=== PATIENT | female | born 2000 | race Caucasian/White ===

== ENCOUNTER 2021-10-11 13:22 | Emergency (ER) | payer OTHER, SELFPAY ==
--- NOTE | ~2021-10-11 | XR_ITS ---
EXAMINATION: XR nasal bones min 3V DATE: 10/11/2021 14:10 INDICATION: Nose injury. TECHNIQUE: 3 views of the nasal bones were obtained. COMPARISON: None. FINDINGS: There are nondisplaced fractures of the tips of the nasal bones. IMPRESSION: 1. Nondisplaced fractures of the tips of the nasal bones. Reviewed, dictated and finalized at location B.
[2021-10-11 13:40] VITALS: BP 123/65; PULSE 70; RESP 16; TEMP 37.1; O2SAT 98
--- NOTE | 2021-10-11 14:14 | ED.HEATRA ---
HPI - Head Injury General Chief complaint: Trauma Stated complaint: Nose Injury Time Seen by Provider: 10/11/21 14:14 Source: patient Mode of arrival: ambulatory Limitations: no limitations History of Present Illness HPI Narrative: Zoila is a 21-year-old female patient presenting to the clinic today with complaints of nasal pain. She reports that she was hit by a farm gate at approximately 10:00 this morning when some cattle was running through and bumped into the gate and it came back and hit her in the face. She did state that she had a little bit of an nosebleed however this has resolved. Pain to the bridge of her nose and headache. She denies any loss of consciousness. Related Data Home Medications Medication Instructions Recorded Confirmed buspirone 10 mg PO TID 10/11/21 10/11/21 fexofenadine [Etelvina] 180 mg PO DAILY 10/11/21 10/11/21 fluoxetine [Prozac] 40 mg PO DAILY 10/11/21 10/11/21 Allergies Allergy/AdvReac Type Severity Reaction Status Date / Time No Known Allergies Allergy Verified 10/11/21 13:50 Review of Systems Review of Systems: Pertinent positives per HPI. Patient denies any fever, chills, rash, visual changes, dizziness, cough, runny nose, sore throat, shortness of breath, chest pain, palpitations, nausea, vomiting, diarrhea, constipation, abdominal pain, or any urinary issues. PMFSH Comments At the time of my signature, I reviewed and agree with the nursing past medical, surgical, social, and family history. There is no relevant family history pertinent to the patient complaint. Exam Narrative: General: Well-developed, well nourished, in no apparent distress Head: Normocephalic, atraumatic Eyes: Pupils equally round and reactive to light bilaterally, EOM intact, sclera and conjunctive clear, no discharge, lids normal Ears: TMs intact and clear, ear canals clear, no drainage, grossly hearing normal. Nose: Nares patent, no discharge, moderate inflammation over the septum, no sinus tenderness. Tenderness to palpation over the bridge of the nose. No sign of bleeding Mouth: Oropharynx without lesions or masses, good dentition, MMM. Neck: Supple, trachea midline, no enlargement of anterior or posterior cervical nodes, no thyroid masses or goiter palpable. Cardio: Regular rate and rhythm, s1 and s2 normal, no murmur appreciated. Resp: Clear to auscultation bilaterally anteriorly and posteriorly, no rhonchi, rales, wheezing or rubs Course Course Emergency Course: Portions of this record may have been created with voice recognition software. Level of Care: Express Care Visit Vital Signs Vital signs: Vital Signs Temperature 37.1 C 10/11/21 13:40 Pulse Rate 70 10/11/21 13:40 Respiratory Rate 16 10/11/21 13:40 Blood Pressure 123/65 10/11/21 13:40 Pulse Oximetry 98 10/11/21 13:40 Temperature 37.1 C 10/11/21 13:40 Pulse Rate 70 10/11/21 13:40 Respiratory Rate 16 10/11/21 13:40 Blood Pressure 123/65 10/11/21 13:40 Pulse Oximetry 98 10/11/21 13:40 Vital signs reviewed MDM - Head Injury MDM Narrative Medical decision making narrative: At the time of assessment patient was resting comfortably on the exam table. She reports nasal bridge pain after being hit by a farm gate. Denies any loss of consciousness. X-ray shows a acute fracture of the nasal bone without malalignment. Supportive measures discussed with patient she voiced understanding. Close head injury instructions also given to patient. Differential Diagnosis Differential diagnosis: Likely concussion without loss of consciousness, closed head injury and other (Nasal bone fracture, nasal contusion) Imaging Data Attestation: I personally reviewed and interpreted this imaging study as follows: My impression: Nondisplaced fracture of the distal nasal bone Radiologist's impression: [facility] [place], [place] [phone] XRay ReportSigned Patient: Glynn LeiB: [birth year]16
== END 2021-10-11 14:32 | disposition home or self-care (01) ==
PROVIDERS: Emergency Provider Nurse Practitioner Family
DX: S09.90XA Unspecified injury of head, initial encounter (principal); S02.2XXA Fracture of nasal bones, initial encounter for closed fracture; W22.8XXA Striking against or struck by other objects, initial encounter; F32.A Depression, unspecified
CPT/HCPCS: 70160; 99213; G0463

== ENCOUNTER 2021-11-15 08:30 | Emergency (ER) | payer OTHER, SELFPAY ==
--- NOTE | ~2021-11-15 | XR_ITS ---
XR hand LT min 3V, XR wrist LT min 3V 11/15/2021 09:09 (accession [id number]), 11/15/2021 09:10 (accession [id number]) Indication: Trauma to the left hand and wrist. Pain. Procedure: 3 views left hand and 4 views left wrist Comparison: No prior studies for comparison. Findings: There is anatomic alignment. No fracture, subluxation or dislocation. No significant soft t issue abnormality. No foreign bodies. Impression: 1: No acute bone or joint abnormality. Reviewed, dictated and finalized at location A. Impression: 1: No acute bone or joint abnormality. Impression: 1: No acute bone or joint abnormality.
--- NOTE | 2021-11-15 08:35 | ED.UPPEXIN ---
HPI - Extremity Injury (Upper) General Chief Complaint: Extremity Injury, Upper Stated Complaint: Left Hand Injury Time Seen by Provider: 11/15/21 08:35 Source: patient and RN notes reviewed History of Present Illness HPI narrative: Patient is a 21-year-old female who presents the urgent care with complaints of left wrist and thumb injury. Patient was seen at [facility] 7 days ago after she hit it on a concrete ledge of a pool. Patient states that she is unsure if she has a wrist fracture or a thumb injury and her paperwork was unclear . Patient states she did not obtain any x-ray reports after she left [facility]. States that she was advised to follow-up with a hand specialist in which she did call their office. Patient states that they told her to leave on the temporary splint and to follow-up on November 29. Patient states that her current OCL is covered in shit and needs to be replaced. Patient states she is been alternating Tylenol and ibuprofen for the pain. Patient is left-hand dominant. No other acute complaints or new injuries reported. No acute distress noted. Patient aware of the plan of care. Some parts of this dictation were generated by voice recognition software and may contain typographical and/or grammatical inaccuracies. Related Data Home Medications Medication Instructions Recorded Confirmed buspirone 10 mg PO TID 10/11/21 10/11/21 fexofenadine [Etelvina] 180 mg PO DAILY 10/11/21 10/11/21 fluoxetine [Prozac] 40 mg PO DAILY 10/11/21 10/11/21 Allergies Allergy/AdvReac Type Severity Reaction Status Date / Time No Known Allergies Allergy Verified 11/15/21 08:54 Review of Systems Review of Systems: CONSTITUTIONAL: Denies fever, chills, or sweats. EYES: Denies visual changes, redness, or discharge. ENT: Denies rhinorrhea, congestion, sore throat, or otalgia. CARDIOVASCULAR: Denies chest pain, palpitations, or edema. RESPIRATORY: Denies cough or dyspnea. GASTROINTESTINAL: Denies abdominal pain, nausea, vomiting, or diarrhea. GENITOURINARY: Denies dysuria or hematuria. SKIN: Denies rash or itching. MUSCULOSKELETAL: Reports of left thumb/wrist pain due to injury NEUROLOGIC: Denies headache, numbness, or weakness. All other systems reviewed are negative, except as documented in HPI. PMFSH Comments At the time of my signature, I reviewed and agree with the nursing past medical, surgical, social, and family history. There is no relevant family history pertinent to the patient complaint. Exam Narrative: GENERAL: This is a well-nourished, well-developed patient, in no apparent distress. HEAD: normocephalic, atraumatic. EYES: PERRL. Sclera clear/white. Vision is grossly intact. EARS: External ears normal NOSE: External nose normal with no obvious nasal discharge, nares without redness, no rhinorrhea. THROAT: Mucous membranes moist NECK: Neck supple CARDIOVASCULAR: Regular rate and rhythm without murmurs, gallops, or rubs. RESPIRATORY: Clear to auscultation. Breath sounds equal bilaterally. No wheezes, rales, or rhonchi. SKIN: warm, intact with no suspicious lesions or rash, good texture and turgor. NEURO: awake, alert, and oriented to person, place and time. There were no obvious focal neurologic abnormalities. EXTREMITIES: OCL thumb spica noted to the left upper extremity without any obvious edema, erythema or ecchymosis. Capillary refill less than 2 seconds to left upper extremity. Course Course Level of Care: Express Care Visit Vital Signs Vital signs: Vital Signs Temperature 98.3 F 11/15/21 08:38 Pulse Rate 62 11/15/21 08:38 Respiratory Rate 16 11/15/21 08:38 Blood Pressure 124/73 11/15/21 08:38 Pulse Oximetry 100 11/15/21 08:38 Temperature 98.3 F 11/15/21 08:38 Pulse Rate 62 11/15/21 08:38 Respiratory Rate 16 11/15/21 08:38 Blood Pressure 124/73 11/15/21 08:38 Pulse Oximetry 100 11/15/21 08:38 Reviewed MDM - Extremity Injury (Upper) MDM Narrative
[2021-11-15 08:38] VITALS: BP 124/73; PULSE 62; RESP 16; TEMP 36.8; O2SAT 100
== END 2021-11-15 09:40 | disposition home or self-care (01) ==
PROVIDERS: Emergency Provider Nurse Practitioner Family
DX: S63.602A Unspecified sprain of left thumb, initial encounter (principal); W22.8XXA Striking against or struck by other objects, initial encounter
CPT/HCPCS: 73110; 73130; 99213; G0463

== ENCOUNTER 2022-05-11 14:58 | Emergency (ER) | payer OTHER, SELFPAY ==
--- NOTE | ~2022-05-11 | XR_ITS ---
XR nasal bones min 3V DATE: 05/11/2022 15:31 INDICATION: Fell into gait with nose. Bilateral nasal bridge pain TECHNIQUE: dileep Licea and left and right lateral views of the nasal bones COMPARISON: None FINDINGS: There is a transverse nondisplaced fracture near the tip of the nasal bones. The anterior m axillary spine is intact. The paranasal sinuses and mastoid air cells are normally developed and aera herman. IMPRESSION: Nondisplaced fracture near the tip of the nasal bones Reviewed, dictated and finalized at location A. MENT SHAPER
[2022-05-11 15:07] VITALS: BP 147/70; PULSE 73; RESP 16; TEMP 37.3; O2SAT 100
--- NOTE | 2022-05-11 15:30 | ED.GENADULT ---
HPI - General Adult General Chief complaint: Unspecified Stated complaint: Nose Injury Time Seen by Provider: 05/11/22 15:30 Source: patient, RN notes reviewed and old records reviewed Mode of arrival: ambulatory Limitations: no limitations History of Present Illness HPI narrative: 21-year-old female who presents to [facility] with complaints of injury to the bridge of her nose after striking it on the gait. 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 Patient was wearing glasses at the time and pushed them into her nose also. Patient had previous nasal fracture in September 2021 complaint: nasal injury Onset (ago): hour(s) (at 1000 today) Location: face Severity scale (1-10): 2 Quality: aching Treatments prior to arrival: none Related Data Home Medications Medication Instructions Recorded Confirmed No Home Medications 05/11/22 05/11/22 Allergies Allergy/AdvReac Type Severity Reaction Status Date / Time No Known Allergies Allergy Verified 05/11/22 15:21 Review of Systems Review of Systems: CONSTITUTIONAL: Denies fever, chills, or sweats. EYES: Denies visual changes, redness, or discharge. ENT: Denies rhinorrhea, congestion, sore throat, or otalgia.swelling and pain to bridge of nose from injury CARDIOVASCULAR: Denies chest pain, palpitations, or edema. RESPIRATORY: Denies cough or dyspnea. GASTROINTESTINAL: Denies abdominal pain, nausea, vomiting, or diarrhea. GENITOURINARY: Denies dysuria or hematuria. SKIN: Denies rash or itching. MUSCULOSKELETAL: Denies back pain, joint pain, or myalgia. NEUROLOGIC: Denies headache, numbness, or weakness. PSYCHIATRIC: positive for history of anxiety or depression. All systems reviewed & are unremarkable except as noted in HPI and below PMFSH Past Medical History Medical History (Updated 05/12/22 @ 00:00 by Vicki Oreilly) Anxiety and depression Surgical History Surgical History (Updated 05/15/22 @ 07:50 by Zee Pan NP) History of thumb surgery right related to fracture Social History Social History (Updated 05/15/22 @ 07:46 by Zee Pan NP) Tobacco type: e-cigarettes/vaping Alcohol intake: current Alcohol use details: rare social Substance use type: does not use Living arrangements: with family Gender identity (if verbalized by the patient): Female Comments At time of signature, agree with nursing past medical, surgical, social and family history. There is no relevant family history pertinent to the presenting complaint Exam Narrative: GENERAL: Well-appearing, well-nourished, and in no acute distress. HEAD: Normocephalic, atraumatic. EYES: PERRLA and EOMI. ENT: Nares clear, no rhinorrhea or epistaxis. Mucous membranes moist,no nasal bleeding noted, swelling and discomfort to bridge of the nose. NECK: Supple. no lymphadenopathy CHEST: Clear to auscultation. No respiratory distress. SAO2 100% on room air HEART: Regular rate and rhythm. No murmur heard. Normal peripheral pulses. ABDOMEN: Soft, nontender, nondistended, normal active bowel sounds. EXTREMITIES: Normal range of motion. No edema. SKIN: Warm, dry, no rash. NEURO: No focal deficits. Alert and oriented x3. Course Course Level of Care: Express Care Visit Vital Signs Vital signs: Vital Signs Temperature 37.3 C 05/11/22 15:07 Pulse Rate 73 05/11/22 15:07 Respiratory Rate 16 05/11/22 15:07 Blood Pressure 147/70 H 05/11/22 15:07 Pulse Oximetry 100 05/11/22 15:07 Oxygen Delivery Room Air 05/11/22 15:07 Temperature 37.3 C 05/11/22 15:07 Pulse Rate 73 05/11/22 15:07 Respiratory Rate 16 05/11/22 15:07 Blood Pressure 147/70 H 05/11/22 15:07 Pulse Oximetry 100 05/11/22 15:07 Oxygen Delivery Room Air 05/11/22 15:07 Medical Decision Making Differential Diagnosis Differential Diagnosis: contusion to nose, nasal fracture, pain and swelling to nose
== END 2022-05-11 16:20 | disposition home or self-care (01) ==
PROVIDERS: Emergency Provider Registered Nurse
DX: S02.2XXA Fracture of nasal bones, initial encounter for closed fracture (principal); W22.8XXA Striking against or struck by other objects, initial encounter; Y99.0 Civilian activity done for income or pay; F17.290 Nicotine dependence, other tobacco product, uncomplicated
CPT/HCPCS: 70160; 99213; G0463

== ENCOUNTER 2022-08-22 11:03 | Emergency (ER) | payer OTHER, SELFPAY ==
[2022-08-22 11:08] VITALS: BP 136/81; PULSE 64; RESP 20; TEMP 36.2; O2SAT 98
--- NOTE | 2022-08-22 11:09 | ED.ABDPAIN ---
HPI - Abdominal Pain General Chief Complaint: Abdominal Pain Stated Complaint: abd pain Time Seen by Provider: 08/22/22 11:09 Source: patient and RN notes reviewed History of Present Illness HPI narrative: Patient is a 22-year-old female who presents to the Urgent Care with complaints of abdominal pain and vomiting. Patient states it started a couple hours ago after she ate a breakfast hot pocket. Patient states she vomited 3 times. Denies any urinary symptoms, diarrhea or fever. Patient took Tylenol for her abdominal discomfort. No other acute complaints. No acute distress noted. Patient aware of the plan of care. Some parts of this dictation were generated by voice recognition software and may contain typographical and/or grammatical inaccuracies. Related Data Home Medications Medication Instructions Recorded Confirmed No Home Medications 05/11/22 05/11/22 Allergies Allergy/AdvReac Type Severity Reaction Status Date / Time No Known Allergies Allergy Verified 08/22/22 11:12 Review of Systems Review of Systems: CONSTITUTIONAL: Denies fever, chills, or sweats. EYES: Denies visual changes, redness, or discharge. ENT: Denies rhinorrhea, congestion, sore throat, or otalgia. CARDIOVASCULAR: Denies chest pain, palpitations, or edema. RESPIRATORY: Denies cough or dyspnea. GASTROINTESTINAL: Reports of abdominal pain and vomiting GENITOURINARY: Denies dysuria or hematuria. SKIN: Denies rash or itching. MUSCULOSKELETAL: Denies back pain, joint pain, or myalgia. NEUROLOGIC: Denies headache, numbness, or weakness. All other systems reviewed are negative, except as documented in HPI. [facility] Past Medical History Medical History (Updated 08/22/22 @ 11:47 by CONRAD Padilla) Anxiety and depression Surgical History Surgical History (Updated 05/15/22 @ 07:50 by Zee Pan NP) History of thumb surgery right related to fracture Social History Social History (Updated 05/15/22 @ 07:46 by Zee Pan NP) Tobacco type: e-cigarettes/vaping Alcohol intake: current Alcohol use details: rare social Substance use type: does not use Living arrangements: with family Gender identity (if verbalized by the patient): Female Comments At the time of my signature, I reviewed and agree with the nursing past medical, surgical, social, and family history. There is no relevant family history pertinent to the patient complaint. Exam Narrative: GENERAL: This is a well-nourished, well-developed patient, in no apparent distress. HEAD: normocephalic, atraumatic. EYES: PERRL. Sclera clear/white. Vision is grossly intact. EARS: External ears normal NOSE: External nose normal with no obvious nasal discharge, nares without redness, no rhinorrhea. THROAT: Mucous membranes moist NECK: Neck supple CARDIOVASCULAR: Regular rate and rhythm RESPIRATORY: Clear to auscultation. Breath sounds equal bilaterally. No wheezes, rales, or rhonchi. GASTROINTESTINAL: Abdomen soft, left-sided rebound tenderness, nondistended. Bowel sounds are active. SKIN: warm, intact with no suspicious lesions or rash, good texture and turgor. NEURO: awake, alert, and oriented to person, place and time. There were no obvious focal neurologic abnormalities. EXTREMITIES: No clubbing, cyanosis, or edema. BACK: Left CVA tenderness Course Course Level of Care: Express Care Visit Vital Signs Vital signs: Vital Signs Temperature 97.1 F L 08/22/22 11:08 Pulse Rate 64 08/22/22 11:08 Respiratory Rate 20 08/22/22 11:08 Blood Pressure 136/81 08/22/22 11:08 Pulse Oximetry 98 08/22/22 11:08 Oxygen Delivery Room Air 08/22/22 11:08 Temperature 97.1 F L 08/22/22 11:08 Pulse Rate 64 08/22/22 11:08 Respiratory Rate 20 08/22/22 11:08 Blood Pressure 136/81 08/22/22 11:08 Pulse Oximetry 98 08/22/22 11:08 Oxygen Delivery Room Air 08/22/22 11:08 Reviewed Transfer Transfered to: [facility]
== END 2022-08-22 11:48 | disposition short-term general hospital (02) ==
PROVIDERS: Emergency Provider Nurse Practitioner Family
DX: R31.9 Hematuria, unspecified (principal); R10.9 Unspecified abdominal pain; F41.9 Anxiety disorder, unspecified; F32.A Depression, unspecified; F17.290 Nicotine dependence, other tobacco product, uncomplicated
CPT/HCPCS: 81003; 99212; G0463

== ENCOUNTER 2022-12-07 17:33 | Emergency (ER) | payer OTHER, SELFPAY ==
--- NOTE | ~2022-12-07 | XR_ITS ---
EXAMINATION: XR foot LT min 3V DATE: 12/07/22 INDICATION: Left foot injury and pain. TECHNIQUE: 4 views of left foot were obtained. COMPARISON: None. FINDINGS: Bone alignment is normal. No fracture. There is mild osteoarthritis of first metatarsophala ngeal joint. There is an enthesophyte at posterior aspect of calcaneal tuberosity. IMPRESSION: 1. No fracture. Reviewed, dictated and finalized at location A. IMPRESSION: 1. No fracture.
--- NOTE | 2022-12-07 19:35 | PC.NURSE ---
12/07/221934 SEE DOWNTIME DOCUMENTATION. STUART KEY RN
== END 2022-12-07 18:45 | disposition home or self-care (01) ==
PROVIDERS: Emergency Provider Nurse Practitioner Family; PCP Nurse Practitioner Family
DX: S90.32XA Contusion of left foot, initial encounter (principal); W55.22XA Struck by cow, initial encounter
CPT/HCPCS: 73630; 99213; G0463

== ENCOUNTER 2023-06-08 08:11 | Emergency (ER) | payer OTHER, SELFPAY ==
--- NOTE | 2023-06-08 08:13 | ED.URI ---
HPI - URI/Sore Throat General Chief Complaint: Upper Respiratory Infection Stated Complaint: Cough/Chest Pain Time Seen by Provider: 06/08/23 08:32 Source: patient, RN notes reviewed and old records reviewed Mode of arrival: ambulatory Limitations: no limitations History of Present Illness HPI Narrative: 22-year-old female presents to the [facility] with complaints of a cough for 1 week. Has tried DayQuil and NyQuil. Patient is a former smoker. Denies fevers Onset (ago): week(s) (1) Related Data Allergies Allergy/AdvReac Type Severity Reaction Status Date / Time No Known Allergies Allergy Verified 06/08/23 08:23 Review of Systems Review of Systems: All systems reviewed & are unremarkable except as noted in HPI and below Constitutional: Constitutional: Reports no additional constitutional complaints Eyes: Eyes: Reports no additional eye complaints ENT: Reports system reviewed and no additional complaints, except as documented Cardiovascular: Cardiovascular: Reports no additional cardiovascular complaints, Denies chest pain and Denies dyspnea Respiratory: Respiratory: Reports as per HPI, Denies chest congestion, Reports cough, Denies dyspnea and Denies wheezing Gastrointestinal: Gastrointestinal: Reports no additional gastrointestinal complaints, Denies abdominal pain, Denies nausea and Denies vomiting Musculoskeletal: Musculoskeletal: Reports no additional musculoskeletal complaints Integumentary/Breasts: Skin/Breast: Reports system reviewed and no additional complaints, except as docu Neurologic: Reports system reviewed and no additional complaints, except as documented Psychiatric: Psychiatric: Reports no additional psychiatric complaints Allergic/Immunologic: Allergic/Immunologic: Reports no additional allergic/immunologic complaints PMF Past Medical History Medical History Anxiety and depression Surgical History Surgical History History of thumb surgery right related to fracture Social History Social History Tobacco type: e-cigarettes/vaping Alcohol intake: current Alcohol use details: rare social Substance use type: does not use Living arrangements: with family Gender identity (if verbalized by the patient): Female Comments At the time of my signature, I reviewed and agree with the nursing past medical, surgical, social, and family history. There is no relevant family history pertinent to the patient complaint. Exam Const: General: cooperative, healthy appearing, comfortable, no acute distress, well developed, alert and well nourished Nutritional Appearance: well nourished Orientation/consciousness: patient oriented x3 Limitations: no limitations HENMT: Head: normal to inspection Ears: hearing grossly normal bilaterally, external ears normal, TM's normal bilaterally, EAC's normal, mastoids normal and no periauricular adenopathy Face/Nose/Sinus: Normal external nose present, Normal nares present, Normal nasal mucous membranes and turbinates present, normal facial exam, sinuses nontender and face symmetric Face and sinus: normal facial exam and face symmetric Mouth: Yes Normal oral and palatal mucosa present, Yes lip normal and Yes moist mucous membranes Throat: posterior oropharynx normal, uvula midline and no uvular edema Eyes: General: appearance normal, both eyes and all related structures Alignment and Position: alignment normal Periorbital: periorbital findings normal Pupils: Equal, round and reactive pupils present EOM: EOMs intact bilaterally Neck: Neck: normal visual inspection, full ROM, no lymphadenopathy and no meningeal signs Chest: Chest palpation & inspection: normal inspection of the chest Resp: Effort & Inspection: normal respiratory effort and able to speak in complete sentences Auscultation: no c
[2023-06-08 08:15] VITALS: BP 132/73; PULSE 68; RESP 16; TEMP 37.4; O2SAT 98
== END 2023-06-08 08:46 | disposition home or self-care (01) ==
PROVIDERS: Emergency Provider Nurse Practitioner; PCP Nurse Practitioner Family
DX: J40 Bronchitis, not specified as acute or chronic (principal); F17.290 Nicotine dependence, other tobacco product, uncomplicated
CPT/HCPCS: 99213; G0463

== ENCOUNTER 2023-11-04 16:44 | Emergency (ER) | payer OTHER, SELFPAY ==
[2023-11-04 16:51] VITALS: BP 138/69; PULSE 74; RESP 16; TEMP 36.6; O2SAT 100
--- NOTE | 2023-11-04 16:53 | ED.GENADULT ---
HPI - General Adult General Chief complaint: Extremity Injury, Upper Stated complaint: lt hand/wrist pain Time Seen by Provider: 11/04/23 16:53 Source: patient, RN notes reviewed and old records reviewed Mode of arrival: ambulatory Limitations: no limitations History of Present Illness HPI narrative: 23-year-old patient to [facility] with complaint of left wrist and left hand discomfort for 5 days. 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 Patient reports that she is left-hand dominant and that she bread 30 cows 4 days ago. Patient states that it her job causes frequent compression left hand and wrist throughout the duration of her work days And states that she has been doing this job for 2 years. 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 Patient denies any known injury. Patient denies decreased range of motion of left hand, numbness, tingling, weakness. Patient states that she has informed her employ year her discomfort and states she cannot take off of work because they are under staffed. Patient calm and cooperative in exam room. Patient in no acute distress. Related Data Home Medications Medication Instructions Recorded Confirmed No Home Medications 11/04/23 11/04/23 Allergies Allergy/AdvReac Type Severity Reaction Status Date / Time No Known Allergies Allergy Verified 11/04/23 17:00 Review of Systems Review of Systems: All systems reviewed & are unremarkable except as noted in HPI and below Constitutional: Constitutional: Reports no additional constitutional complaints Eyes: Eyes: Reports no additional eye complaints ENT: Reports system reviewed and no additional complaints, except as documented Cardiovascular: Cardiovascular: Reports no additional cardiovascular complaints, Denies chest pain and Denies dyspnea Respiratory: Respiratory: Reports no additional respiratory complaints, Denies cough and Denies dyspnea Musculoskeletal: Musculoskeletal: Reports as per HPI, Reports arthralgias ( Left wrist; diffuse left hand), Denies numbness and Denies radiating pain into limb Neurologic: Reports system reviewed and no additional complaints, except as documented Psychiatric: Psychiatric: Reports no additional psychiatric complaints PMFSH Past Medical History Medical History Anxiety and depression Surgical History Surgical History History of thumb surgery right related to fracture Social History Social History Tobacco type: e-cigarettes/vaping Alcohol intake: current Alcohol use details: rare social Substance use type: does not use Living arrangements: with family Gender identity (if verbalized by the patient): Female Comments At the time of my signature, I reviewed and agree with the nursing past medical, surgical, social, and family history. There is no relevant family history pertinent to the patient complaint. Exam Const: General: cooperative, healthy appearing, comfortable, no acute distress, alert and well nourished Nutritional Appearance: well nourished Orientation/consciousness: patient oriented x3 Limitations: no limitations HENMT: Head: normal to inspection Ears: external ears normal Face/Nose/Sinus: Normal external nose present, Normal nares present, normal facial exam, No erythema and No edema Face and sinus: normal facial exam, no erythema and no edema Mouth: Yes Normal oral and palatal mucosa present Eyes: General: appearance normal, both eyes and all related structures Neck: Neck: normal visual inspection, full ROM and no meningeal signs Lymphatic: no lymphadenopathy noted and no lymphedema noted Chest: Chest palpation & inspection: normal inspection of the chest Resp: Effort
== END 2023-11-04 17:25 | disposition home or self-care (01) ==
PROVIDERS: Emergency Provider Nurse Practitioner Family; PCP Nurse Practitioner Family
DX: M25.532 Pain in left wrist (principal); M79.642 Pain in left hand; F17.290 Nicotine dependence, other tobacco product, uncomplicated
CPT/HCPCS: 99212; G0463

== ENCOUNTER 2024-05-07 09:09 | Emergency (ER) | payer OTHER, SELFPAY ==
[2024-05-07 09:16] VITALS: BP 120/55; PULSE 72; RESP 18; TEMP 37.1; O2SAT 100
--- NOTE | 2024-05-07 12:17 | ED.GENADULT ---
HPI - General Adult General Chief complaint: Nausea/Vomiting/Diarrhea Stated complaint: frequent bowel movements Time Seen by Provider: 05/07/24 09:18 Source: patient, RN notes reviewed and old records reviewed Mode of arrival: ambulatory Limitations: no limitations History of Present Illness HPI narrative: 23-year-old female to [facility] with complaint of diarrhea That began at approximately 3:30 a.m. this morning. Patient reports she has had 5-6 bowel movements since then. 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 Patient denies blood in stool, abdominal pain, nausea, vomiting, fever, allergies. Patient able to tolerate fluids by mouth. Patient resting comfortably in exam room in no acute distress. Related Data Allergies Allergy/AdvReac Type Severity Reaction Status Date / Time No Known Allergies Allergy Verified 05/07/24 09:30 Review of Systems Review of Systems: All systems reviewed & are unremarkable except as noted in HPI and below Constitutional: Constitutional: Reports no additional constitutional complaints Eyes: Eyes: Reports no additional eye complaints ENT: Reports system reviewed and no additional complaints, except as documented Cardiovascular: Cardiovascular: Reports no additional cardiovascular complaints, Denies chest pain and Denies dyspnea Respiratory: Respiratory: Reports no additional respiratory complaints, Denies cough and Denies dyspnea Gastrointestinal: Gastrointestinal: Reports as per HPI, Reports diarrhea, Denies nausea and Denies vomiting Musculoskeletal: Musculoskeletal: Reports no additional musculoskeletal complaints Neurologic: Reports system reviewed and no additional complaints, except as documented Psychiatric: Psychiatric: Reports no additional psychiatric complaints PMFSH Past Medical History Medical History Anxiety and depression Surgical History Surgical History History of thumb surgery right related to fracture Social History Social History Tobacco type: e-cigarettes/vaping Alcohol intake: current Alcohol use details: rare social Substance use type: does not use Living arrangements: with family Gender identity (if verbalized by the patient): Female Comments At the time of my signature, I reviewed and agree with the nursing past medical, surgical, social, and family history. There is no relevant family history pertinent to the patient complaint. Exam Const: General: cooperative, healthy appearing, comfortable, no acute distress, alert and well nourished Nutritional Appearance: well nourished Orientation/consciousness: patient oriented x3 Limitations: no limitations HENMT: Head: normal to inspection Ears: external ears normal Face/Nose/Sinus: Normal external nose present, Normal nares present, normal facial exam, No erythema and No edema Face and sinus: normal facial exam, no erythema and no edema Mouth: Yes Normal oral and palatal mucosa present Eyes: General: appearance normal, both eyes and all related structures Neck: Neck: normal visual inspection, full ROM and no meningeal signs Chest: Chest palpation & inspection: normal inspection of the chest Resp: Effort & Inspection: normal respiratory effort and able to speak in complete sentences Cardio: Jugular venous distension: no JVD Rate: regular rate GI: Inspection: normal to inspection GI Palp: No abdominal tenderness, Yes Soft to palpation, No Tenderness to palpation present (GI) and No Guarding due to palpation present (GI) Auscultation: normal bowel sounds Back/Spine/Pelvis: Cervical Spine: cervical ROM normal Skin: General skin exam: normal color, no rashes or lesions noted and turgor normal Neuro: General: patient oriented x3, gait normal, moves all extremities and no meningeal signs Speech: normal speech Gait exam (Neuro): Normal gait present Extrem: General: normal to inspection, full ROM and capillary refill normal Psych: Appearance: grossly normal and well kempt Course Course Emergency Course: Some parts of this dictation were generated by voice recognition software and may contain typographical and/or grammatical inaccuracies. Level of Care: Express Care Visit Vital Signs Vital signs: Vital Signs Temperature 37.1 C 05/07/24 09:16 Pulse Rate 72 05/07/24 09:16 Respiratory Rate 18 05/07/24 09:16 Blood Pressure 120/55 L 05/07/24 09:16 Pulse Oximetry 100 05/07/24 09:16 Oxygen Delivery Room Air 05/07/24 09:16 Temperature 37.1 C 05/07/24 09:16 Pulse Rate 72 05/07/24 09:16 Respiratory Rate 18 05/07/24 09:16 Blood Pressure 120/55 L 05/07/24 09:16 Pulse Oximetry 100 05/07/24 09:16 Oxygen Delivery Room Air 05/07/24 09:16 reviewed Medical Decision Making MDM Narrative Medical decision making narrative: 23-year-old female to [facility] with complaint of diarrhea That began at approximately 3:30 a.m. this morning. Patient reports she has had 5-6 bowel movements since then. 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 Patient denies blood in stool, abdominal pain, nausea, vomiting, fever, allergies. Patient able to tolerate fluids by mouth. Patient resting comfortably in exam room in no acute distress. Patient is sitting comfortably in exam room nontoxic in appearance. Patient exam unremarkable. Patient appropriate for outpatient treatment and follow-up. Discharge instructions reviewed with patient, as well as provided in writing per nursing staff. The instructions also include specific and strict return/GO TO THE ER as well as f/u information. All questions have been answered, and the patient deny any further questions with discharge and discharge plan. Some parts of this dictation were generated by voice recognition software and may contain typographical and/or grammatical inaccuracies. Differential Diagnosis Differential Diagnosis: Campylobacter infection, Diarrhea, gastroenteritis, viral infection, enteric infection Vital Signs Vital Signs: Vital Signs Temperature 37.1 C 05/07/24 09:16 Pulse Rate 72 05/07/24 09:16 Respiratory Rate 18 05/07/24 09:16 Blood Pressure 120/55 L 05/07/24 09:16 Pulse Oximetry 100 05/07/24 09:16 Oxygen Delivery Room Air 05/07/24 09:16 Temperature 37.1 C 05/07/24 09:16 Pulse Rate 72 05/07/24 09:16 Respiratory Rate 18 05/07/24 09:16 Blood Pressure 120/55 L 05/07/24 09:16 Pulse Oximetry 100 05/07/24 09:16 Oxygen Delivery Room Air 05/07/24 09:16 Discharge Plan Discharge Clinical Impression: Campylobacter diarrhea Patient Disposition: Home, Self-Care Condition: Stable Instructions: Gastroenteritis (ED) Additional Instructions: Please review attached instructions regarding gastroenteritis and implement suggestions as tolerated please finish entire course of antibiotic treatment for new or worsening symptoms please go directly to the emergency department Prescriptions: New azithromycin 250 mg tablet 250 mg PO DAILY Qty: 6 0RF Rx Instructions: 250 mg orally. Take TWO tablets today, then one tablet daily for 4 days. Follow-up/Referrals: PHYSICIAN,ARMATURE WINDER REPAIR HELPER [Primary Care Provider] -
== END 2024-05-07 10:10 | disposition home or self-care (01) ==
PROVIDERS: Emergency Provider Nurse Practitioner Family
DX: A04.5 Campylobacter enteritis (principal); F17.290 Nicotine dependence, other tobacco product, uncomplicated
CPT/HCPCS: 99213; G0463

== ENCOUNTER 2024-09-03 17:52 | Emergency (ER) | payer OTHER, SELFPAY ==
[2024-09-03 18:00] VITALS: BP 124/62; PULSE 71; RESP 16; TEMP 36.7; O2SAT 100
--- OUTSIDE RECORDS SUMMARY | 2024-09-03 18:28 | XMS_ITS | Clinical Summary ---
Author Organization [facility] Address [address] [place] [address] Phone Care Team Providers Care Senior Landscape Architect Name Role Phone Jonathan Kumar PAC Primary Care Provider [phone] Allergies No known active allergies Medications Ascorbic Acid (VITAMIN C PO) Take by mouth. Active benzonatate (TESSALON) 100 MG CapsuleIndicati ons:Bronchitis Take 1 Capsule by mouth 3 times daily as needed for Cough. 30 Capsule 3 Active Additional Information Patient not taking.Reported on 06/29/2023 predniSONE (DELTASONE) 10 MG TabletIndicatio ns:Persistent cough for 3 weeks or longer Take 4 tab PO daily x 2 days, 3 tab PO daily x 2 days, 2 tab PO daily x 2 day, 1 tab PO daily x 2 days. 20 Tablet 4 Active Additional Information Patient not taking.Reported on 11/06/2023 acetaminophen (TYLENOL) 500 MG Tablet Take 500 mg by mouth every 4 hours as needed. Active naproxen (NAPROSYN) 500 MG TabletIndicatio ns:Left hand pain Take 1 Tablet by mouth 2 times daily (with meals). 60 Tablet 4 Active Active Problems Problem Noted Date Diagnosed Date PTSD (post-traumatic stress disorder) 08/30/2021 MDD (major depressive disorder), single episode, moderate 09/01/2016 Immunizations Immunization Administration Dates Next Due Hepatitis A Vaccine, Pediatr ic/adolescent, 2 Dose Schedule 12/02/2013 Human Papillomavirus (HPV) 9-valent Vaccine 08/25 Human Papillomavirus Vaccine (HPV), quadrivalent 02/03/2014,12/02/2013 Meningococcal Vaccine 09/15/2016 Family History Medical History Relation Name Comments Scoliosis Brother 1 Gerry Asthma Brother 2 Benjarmin No Known Problems Father Bari No Known Problems Mother Jackie Relation Name Status Comments Brother 1 Gerry Alive Brother 2 Benjarmin Alive Father Bari Alive Mother Jackie Alive Social History Tobacco Use Types Packs/Day Years Used Date Smoking Tobacco: Never Smokeless Tobacco: Never Tobacco Cessation:Counseling Given: Not Answered Alcohol Use Standard Drinks/Week Comments No 0 (1 standard drink = 0.6 oz pur e alcohol) PHQ-2 Answer Date Recorded Total Score - Questions 1-9 19 12/2021 Education Answer Date Recorded What is the highest level of school you have completed or the highest degree you have received? 12th grade 08/04/2021 Sexually Active Control Partners Comments Never Male Comments No Sex and Gender Information Value Date Recorded Sex Assigned at Not on file Legal Sex Female 10:17 PM CDT Gender Identity Not on file Sexual Orientation Not on file Last Filed Vital Signs Vital Sign Reading Time Taken Comments Blood Pressure 120/70 11/06/2023 4:32 PM CDT Pulse 77 11/06/2023 4:32 PM CDT Temperature 36.6 C (97.8 F) 11/06/2023 4:32 PM CDT Respiratory Rate 18 11/06/2023 4:32 PM CDT Oxygen Saturation 98% 11/06/2023 4:32 PM CDT Inhaled Oxygen Concentration - - Weight 88.9 kg (196 lb) 11/06/2023 4:32 PM CDT Height 162.6 cm (5' 4 ) 11/06/2023 4:32 PM CDT Body Mass Index 33.64 11/06/2023 4:32 PM CDT Plan of Treatment Health Maintenance Due Date Last Done Comments Hepatitis C Virus (HCV) Screening 1999 TdaP Immunization 1999 Hepatitis B Immunization (1 of 3 - 19+ 3-dose series) 2018 Pap Smear 2020 Influenza Immunization (#1) 2024 SARS-COV-2 Immunization ( - season) 2024 Respiratory Syncytial Virus (RSV) Immunization (Adult) (1 - 1-dose 75+ series) 2074 Human Papillomavirus (HPV) Immunization Completed 09/15/2016, 02/03/2014, 12/02/2013 Meningococcal Immunization (ACWY) Completed 09/15/2016 Pneumococcal Immunization Combined Aged Out No longer eligible b ased on patient's age to complete this topic Rotavirus Immunization Aged Out No lo nger eligible based on patient's age to complete this topic Goals Goal Patient Goal Type Associated Problems Recent Progress Patient-Stated? Author Emotional Distress Behavioral Health On track( 11:31 AM CDT) No Malaika Sauceda LCSW Note: Thelma will report decreased emotional distress Goal Reviewed with: patient today Readiness to change: Ready to change Department associated with goal: [facility] Steps to achieve goal: will attend psychotherapy/counseling at least once monthly for 10 sessions and self disclose to have an outlet for distressing thoughts and feelings. will identify at least two ways to engage in self expression and to gain relief from distressing emotions and thoughts. will implement one other way, in addition to counseling, to engage in self expression and to gain relief from distressing emotions and thoughts. I want to be able to cope with what happened. Behavioral Health On track( 022 11:31 AM CDT) Yes Malaika Sauceda LCSW Note: will gain insight regarding impact of trauma and gain relief from traumatic stress. Goal Reviewed with: patient today Readiness to change: Ready to change Department associated with goal: [facility] Steps to achieve goal: will share personal trauma story in counseling/psychotherapy sessions. will learn/identify how trauma has impacted personal life, physical health and behavioral health. will identify and practice, at least two, skills/activities/routines, to gain relief from the impact of trauma. Will attend individual or group therapy at least once a month for 8-10 sessions. Insurance [facility] Care Teams Senior Landscape Architect Relationship Specialty Start Date End Date Jonathan Kumar, APPLE [address] [place] [address] PCP - General Physician Director [employer] 06/15/23
--- OUTSIDE RECORDS SUMMARY | 2024-09-03 18:28 | XMS_ITS | Clinical Summary ---
Author Organization [facility] Address [address] [place] [address] Care Team Providers Care Asphalt Dauber Name Role Phone Bridget Cornelius MD Primary Care Provider [phone] Source Comments [facility],non-owned Affiliates and Associated Physician Practices is amultiple site organization consisting of ambulatory clinics and hospital sitesin [place], [place], [place] and [place]. This disclosure is being madepursuant to the Care Everywhere program and may not contain all information available regarding this patient. Last updated 18.[facility] Allergies No known active allergies Medications * Be aware that medications may not be up to date on this document. Alwaysverify current medications with the patient. Medication Sig Dispensed Refills Start Date End Date Status topiramate (TOPAMAX) 50 MG tabletIndications:Ne uralgia Take 1 tablet by mouth at bedtime Reasons: Neuralgia 90 tablet 3 06/25/2018 Active Active Problems No known active problems Social History Tobacco Use Types Packs/Day Years Used Date Smoking Tobacco: Never Smokeless Tobacco: Never Alcohol Use Standard Drinks/Week Comments No 0 (1 standard drink = 0.6 oz pur e alcohol) Sex and Gender Information Value Date Recorded Sex Assigned at Not on file Gender Identity Not on file Sexual Orientation Not on file Last Filed Vital Signs Vital Sign Reading Time Taken Comments Blood Pressure 127/80 06/25/2018 7:52 AM REGIONAL MERCHANDISING MANAGER Pulse 74 06/25/2018 7:52 AM REGIONAL MERCHANDISING MANAGER Temperature - - Respiratory Rate - - Oxygen Saturation - - Inhaled Oxygen Concentration - - Weight 98.9 kg (218 lb) 06/25/2018 7:52 AM REGIONAL MERCHANDISING MANAGER Height 165.1 cm (5' 5 ) 06/25/2018 7:52 AM REGIONAL MERCHANDISING MANAGER Body Mass Index 36.28 06/25/2018 7:52 AM REGIONAL MERCHANDISING MANAGER Plan of Treatment Health Maintenance Due Date Last Done Comments PAP SMEAR 1999 HIV SCREENING 2014 HPV VACCINE (1 - 3-dose series) 2014 CHLAMYDIA/GONORRHEA SCREENING 2015 HEPATITIS C SCREENING 06/11/2017 DTAP/TDAP/TD VACCINES (1 - Tdap) 2018 HEPATITIS B VACCINE (1 of 3 - 19+ 3-dose series) 2018 COVID-19 VACCINE (1 - 2023-2 5 season) 2024 INFLUENZA VACCINE (#1) 2024 DEPRESSION SCREENING 06/26/2024 ZOSTER VACCINE (1 of 2) 2049 HIB VACCINE Aged Out No longer eligi ble based on patient's age to complete this topic MENINGOCOCCAL (Group B) VACCINE Aged Out No longer eligible based on patient's age to complete this topic MENINGOCOCCAL VACCINE Aged Out No tricia rodrick eligible based on patient's age to complete this topic PNEUMOCOCCAL VACCINE Aged Out No long er eligible based on patient's age to complete this topic Care Teams Asphalt Dauber Relationship Specialty Start Date End Date Bridget Cornelius MD PCP - General 06/12/18
--- OUTSIDE RECORDS SUMMARY | 2024-09-03 18:28 | XMS_ITS | Encounter Summary ---
Author Organization [facility] Address [address] [place] [address] Phone Care Team Providers Care Wrapper Selector Name Role Phone Nyla Peace APRN, CIARA Primary Care Provider Jonathan Kumar Primary Care Provider [phone] Reason for Visit * Reason Comments Medication Refill Encounter Details Date Type Department Care Team (Late st Contact Info) Description [facility] [place] [address] [place] [address] Nyla Peace APRN, CNP [address] [place] [address] Medication Refill Social History Tobacco Use Types Packs/Day Years Used Date Smoking Tobacco: Never Smokeless Tobacco: Never Alcohol Use Standard Drinks/Week Comments No 0 (1 standard drink = 0.6 oz pur e alcohol) PHQ-2 Answer Date Recorded Total Score - Questions 1-9 8 06/26 Education Answer Date Recorded What is the highest level of school you have completed or the highest degree you have received? 12th grade 08/04/2021 Sexually Active Control Partners Comments Never Male Comments No Sex and Gender Information Value Date Recorded Sex Assigned at Not on file Legal Sex Female 10:17 PM CDT Gender Identity Not on file Sexual Orientation Not on file COVID-19 Exposure Response Date Recorded In the last month, have you been in contact with someone who was confirmed or suspected to have Coronavirus / COVID-19? No / Unsure 08/04/2021 12:47 PM CHARGEBACK ANALYST documented as of this encounter Miscellaneous Notes * Telephone Encounter - Dariela Price RN - 08/12/2021 8:24 AM CHARGEBACK ANALYST Refill requested too soon. GEBACK ANALYST documented in this encounter Plan of Treatment Not on file documented as of this encounter Visit Diagnoses Not on filedocumented in this encounter Additional Health Concerns Assessment Noted Time PHQ-9 Depression Total Score: 8 07/06/19 22 10:00 AM CHARGEBACK ANALYST documented as of this encounter Care Teams Wrapper Selector Relationship Specialty Start Date End Date Nyla Peace, RV PARTS AND SERVICE DIRECTOR, DEBURRING TECHNICIAN [address] [place] [address] PCP - General Advanced Practice Nurse 12/11/19 Jonathan Kumar, PAC [address] [place] [address] PCP - General Physician Steward/Stewardess Lounge 06/15/23 documented as of this encounter
--- OUTSIDE RECORDS SUMMARY | 2024-09-03 18:28 | XMS_ITS | Referral Summary ---
[place] [facility] [place] [address] Address [address] [place] [address] Care Team Providers Care Heavy Forger Name Role Phone Kobi Nyla Shoaib NAVA Primary Care Provider [phone] Allergies No known active allergies Medications topiramate (TOPAMAX) 50 mg tablet Take 50 mg by mouth nightly 06/25/20 18 Active melatonin tablet Take by mouth Active vitamin A-vitamin C-vit E-min tablet Take by mouth Active cetirizine (ZyrTEC) 10 mg tablet Take 10 mg by mouth daily Active busPIRone (BUSPAR) 10 mg tablet Take 10 mg by mouth 3 (three) times a day 08/17/19 22 Active fexofenadine (YANELY) 180 mg tablet Take 180 mg by mouth daily 04/23/20 20 Active FLUoxetine (PROzac) 40 mg capsule Take 40 mg by mouth daily 10/16/19 22 Active FLUoxetine (PROzac) 40 mg capsule Take 40 mg by mouth daily 10/16/19 22 Active hydrOXYzine (ATARAX) 25 mg tablet Patient may take 1 or 2 tablets at night for sleep 09/15/19 22 Active norethindrone-e.es tradioL-iron (JUNEL FE 07/15) 1 mg-20 mcg (21)/75 mg (7) per tablet Take 1 tablet by mouth daily Active acetaminophen (TYLENOL) 500 mg tablet Take 2 tablets (1,000 mg total) by mouth every 8 (eight) hours as needed for pain for up to 20 doses 40 tablet 08/23/19 Active ibuprofen (ADVIL,MOTRIN) 600 mg tablet Take 1 tablet (600 mg total) by mouth every 6 (six) hours as needed for pain for up to 30 doses 30 tablet 08/23/19 23 Active ondansetron ODT (ZOFRAN-ODT) 4 mg disintegrating tablet Take 1 tablet (4 mg total) by mouth every 8 (eight) hours as needed for nausea or vomiting 20 tablet 08/23/19 Active tamsulosin (FLOMAX) 0.4 mg extended release capsule Take 1 capsule (0.4 mg total) by mouth daily for 7 days 7 capsule 08/23/19 Active oxyCODONE (ROXICODONE) 5 mg immediate release tabletIndications: Pain Take 1 tablet (5 mg total) by mouth every 8 (eight) hours as needed for pain (Severe, breakthrough pain) 9 tablet 08/23/19 Active HYDROcodone-acetam inophen (NORCO) 5-325 mg per tabletIndications: Pain Take 1-2 tablets by mouth every 4 (four) hours as needed for pain Do not exceed 8 tablets/day. 15 tablet 09/01/19 Active Active Problems Problem Noted Date Diagnosed Date Injury of left thumb 11/29/2021 PTSD (post-traumatic stress disorder) 08/30/2021 MDD (major depressive disorder), single episode, moderate 09/01/2016 Gastroesophageal reflux disease 01/15/2013 Immunizations Immunization Administration Dates Next Due HPV, Quadrivalent 02/03/2014,12/02/2013 HPV9 09/15/2016 Hep A, Pediatric 12/02/2013 Meningococcal MCV4P (Menactra) 09/15/2016 Social History Tobacco Use Types Packs/Day Years Used Date Smoking Tobacco: Never Personal Safety Answer Date Recorded Getting School Help Needed Not on file 06/16 Comments No Sex and Gender Information Value Date Recorded Sex Assigned at Not on file Legal Sex Female 12:45 AM [employer]ON[employer]IST Gender Identity Not on file Sexual Orientation Not on file Last Filed Vital Signs Vital Sign Reading Time Taken Comments Blood Pressure 119/66 08/23/2022 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 Pulse 76 08/23/2022 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 Temperature 37.8 C (100 F) 08/22/2022 6:54 PM AGRONOMY SPECIALIST Respiratory Rate 18 08/23/2022 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 Oxygen Saturation 96% 08/23/2022 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 Inhaled Oxygen Concentration - - Weight 90.7 kg (200 lb) 08/22/2022 6:54 PM AGRONOMY SPECIALIST Height 162.6 cm (5' 4 ) 08/22/2022 6:54 PM AGRONOMY SPECIALIST Body Mass Index 34.33 08/22/2022 6:54 PM AGRONOMY SPECIALIST Plan of Treatment Not on file Insurance [facility] CHO[facility] PL[facility] Member Subscriber Plan / Payer (Ef fective 2019-Present) Name:Thelma Lei Relation to Subscriber:Self Name:Ludmila Leiyg Nowak Payer ID:[id number] ([facility] Type:[facility] HMO/PPO Address: [address] [address] [place] [address] [facility] CHO[facility] PL[facility] Member Subscriber Plan / Payer (Ef fective 2021-Present) Name:Thelma Lei Relation to Subscriber:Self Name:Thelma Lei Eliu Payer ID:[id number] ([facility]) Type:[facility] HMO/PPO Address: [address] [address] [place] [address] [facility] CHOICE PLUS Care Teams Heavy Forger Relationship Specialty Start Date End Date Nyla Peace NP [address] [place] [address] PCP - General 08/12/21
--- OUTSIDE RECORDS SUMMARY | 2024-09-03 18:28 | XMS_ITS ---
Author Organization [facility] Address [address] [place], [place] [id number] Care Team Providers Care Shear Operator Automatic Name Role Phone JUN SALEEM Primary Care Provider [phone] Fam Calderon Unavailable [phone] Allergies No Known Allergies Results Component Value Reference Range Notes Urine Human Chronic Gonadotr opin () Reviewed date:05/03/2024 02:38:26 PM Interpretation: Performing Lab:[facility]), [address] [place], [place] [id number] Notes/Report: Test Performed at [facility], [address] [place] [id number]. [phone]. Electronic Installer: Yolanda Hu MD. CLIA# [id number]. This order was split into 3 orders: [id number] (Urine Human Chronic Gonadotropin), [id number] (IGP,CtNgTv,rfx Apt HPV all ), [id number] (RPR (DX) W/REFL TITER,\T\ CONFIRM TESTING,HEPATITIS BS ANTIGEN 498) Urine Human Chronic Gonadotropin Negative Negative Internal QC performed [place] [facility] [place] Kit Lot [id number] Performing Location WF HEPATITIS BS ANTIGEN 498 Reviewed date:05/07/2024 11:16:05 AM Interpretation: Performing Lab:[facility], [address] [facility] [place], [place] [id number], Phone - [phone] Notes/Report: TESTING PERFORMED AT: [] [email or web address], [address] [place] [address], [address], PHONE: [phone], MEDICAL ADMINISTRATIVE ASSISTANT: CRUZ WAY, PHD Items were attached to this order: HEPATITIS C ANTIBODY 8472 This order was split into 3 orders: [id number] (Urine Human Chronic Gonadotropin), 8355940 (IGP,CtNgTv,rfx Apt HPV all ), [id number] (HEPATITIS C ANTIBODY,RPR (DX) W/REFL TITER,\T\ CONFIRM TESTING,HEPATITIS BS ANTIGEN 498) HBSAG SCREEN NEGATIVE NEGATIVE HEPATITIS C ANTIBODY Reviewed date:05/07/2024 11:15:49 AM Interpretation: Performing Lab:[facility], [address] [facility] [address], [place], [place] [id number], Phone - [phone] Notes/Report: TESTING PERFORMED AT: [] [email or web address], [address] [place] [address], [address], PHONE: [phone], MEDICAL ADMINISTRATIVE ASSISTANT: CRUZ WAY, PHD Items were attached to this order: HEPATITIS C ANTIBODY 8472 This order was split into 3 orders: [id number] (Urine Human Chronic Gonadotropin), 6938613 (IGP,CtNgTv,rfx Apt HPV all ), 4110838 (HEPATITIS C ANTIBODY,RPR (DX) W/REFL TITER,\T\ CONFIRM TESTING,HEPATITIS BS ANTIGEN 498) HEP C VIRUS AB NON REACTIVE NON REACTIVE HCV ANTIBODY ALONE DOES NOT DIFFERENTIATE BETWEEN PREVIOUSLY RESOLVED INFECTION AND ACTIVE INFECTION. EQUIVOCAL AND REACTIVE HCV ANTIBODY RESULTS SHOULD BE FOLLOWED UP WITH AN HCV RNA TEST TO SUPPORT THE DIAGNOSIS OF ACTIVE HCV INFECTION. POC HIV - ChemBio Reviewed date:05/03/2024 02:38:26 PM Interpretation:Negative Performing Lab: Notes/Report: Negative RPR (DX) W/REFL TITER,& CONF IRM TESTING Reviewed date:05/07/2024 11:15:56 AM Interpretation: Performing Lab:[facility], [address] [facility] [address], [place], [place] [id number], Phone - [phone] Notes/Report: TESTING PERFORMED AT: [] [email or web address], [address] [place] [address], [address], PHONE: [phone], MEDICAL ADMINISTRATIVE ASSISTANT: CRUZ WAY, PHD Items were attached to this order: HEPATITIS C ANTIBODY 8472 This order was split into 3 orders: [id number] (Urine Human Chronic Gonadotropin), 3920686 (IGP,CtNgTv,rfx Apt HPV all ), 7980312 (HEPATITIS C ANTIBODY,RPR (DX) W/REFL TITER,\T\ CONFIRM TESTING,HEPATITIS BS ANTIGEN 498) RPR NON REACTIVE NON REACTIVE IGP,CtNgTv,rfx Apt HPV all Reviewed date:05/15/2024 08:12:31 AM Interpretation: Performing Lab:, [facility], [address] [facility] [address], [place], [place] [address], Phone - [phone] Notes/Report: TESTING PERFORMED AT: [] [address] [place], [address], PHONE: [phone], MEDICAL ADMINISTRATIVE ASSISTANT: DOMENICO MARTELL MD NO. OF CONTAINERS..01 THINPREP VIAL This order was split into 3 orders: [id number] (Urine Human Chronic Gonadotropin), 5750653 (IGP,CtNgTv,rfx Apt HPV all ), 0920018 (HEPATITIS C ANTIBODY,RPR (DX) W/REFL TITER,\T\ CONFIRM TESTING,HEPATITIS BS ANTIGEN 498) DIAGNOSIS: COMMENT UNSATISFACTORY FOR EVALUATION. RECOMMENDATION: COMMENT SUGGEST FOLL OW UP CLINICALLY APPROPRIATE. SPECIMEN ADEQUACY: COMMENT SPECIMEN PROCESSED AND EXAMINED BUT UNSATISFACTORY FOR EVALUATION OF EPITHELIAL ABNORMALITY BECAUSE OF INSUFFICIENT CELLULARITY. CLINICIAN PROVIDED ICD10: COMMENT Z12.4 PERFORMED BY: COMMENT KVNG SPEAR, CORNER CUTTER MACHINE OPERATOR (ASCP) QC REVIEWED BY: SEJAL WATERS, SUPERVISORY CORNER CUTTER MACHINE OPERATOR (ASCP) . . NOTE: COMMENT THE PAP SMEAR I S A SCREENING TEST DESIGNED TO AID IN THE DETECTION OF PREMALIGNANT AND MALIGNANT CONDITIONS OF THE UTERINE CERVIX. IT IS NOT A DIAGNOSTIC PROCEDURE AND SHOULD NOT BE USED THE SOLE MEANS OF DETECTING CERVICAL CANCER. BOTH FALSE-POSITIVE AND FALSE-NEGATIVE REPORTS DO OCCUR. TEST METHODOLOGY: COMMENT THIS LIQUI D BASED THINPREP(R) PAP TEST WAS SCREENED WITH THE USE OF AN IMAGE GUIDED SYSTEM. . COMMENT THE HPV DNA REF KARLA CRITERIA WERE NOT MET WITH THIS SPECIMEN RESULT THEREFORE, NO HPV TESTING WAS PERFORMED. CHLAMYDIA, NUC. ACID AMP NEGATIVE NEGATIVE GONOCOCCUS, NUC. ACID AMP NEGATIVE NEGATIVE TRICH VAG BY ELIJAH NEGATIVE NEGATIVE REASON FOR VISIT Annual Well Women's Exam WITH PAP Medications Medication SIG (Take, Route, Frequency, Duration) Notes Start Date End Date Status Pamprin Max Pain Formula 500-25-15 MG as directed Orally Active Social History Tobacco Use: Social History Observation Description Date Details (start date - stop date) Former Smoker NA - NA Sex Assigned At : Social History Observation Description Sex Assigned At Female Tobacco use other than smoking: Question Answer Notes Are you an other tobacco user? No Tobacco Control (Standard) Question Answer Notes Tobacco use: Former smoker Additional Findings: Tobacco user e-cigarette Problems Problem Type SNOMED Code ICD Code Onset Dates Problem Status W/U Status Risk Notes Problem Gynecological examination normal (086536650612465) Encounter for gynecological examination (general) (routine) without abnormal findings (Z01.419) Active confirmed Vital Signs Temperature 98.4 degrees Fahrenheit 05/03/20 24 Blood pressure systolic 122 mm Hg 05/03/20 24 Blood pressure diastolic 67 mm Hg 024 Heart Rate 61 /min 05/03/2024 Respiratory Rate 18 /min 05/03/2024 Height 65 in 05/03/2024 Weight 202 lbs 05/03/2024 BMI 33.61 kg/m2 05/03/2024 Oximetry 98 % 05/03/2024 Weight-kg 91.63 kg 05/03/2024 Pt presents to clinic today for wwe. Currently on menses 05/01/2024. No c/o pain. Received Rapid HIV POC. Ary Ribeiro RN Encounters Encounter Location Date Provider Diagnosis [facility] [address] [place] [address] 05/03/[address] [facility] Encounter for pregna ncy test, result unknown Z32.00 ; Encounter for gynecological examination (general) (routine) without abnormal findings Z01.419 ; Encounter for screening for infections with a predominantly sexual mode of transmission Z11.3 ; Encounter for screening for malignant neoplasm of cervix Z12.4 ; Encounter for other general counseling and advice on contraception Z30.09 and Encounter for human immunodeficiency virus test Z11.4 Assessments Encounter Date Diagnosis (ICD Code) Assessment Notes Treatment Notes Treatment Clinical Notes Section Notes 05/03/2024 Encounter for test, result unknown (ICD-10 - Z32.00) 05/03/2024 Encounter for gynecological examination (general) (routine) without abnormal findings (ICD-10 - Z01.419) WWE - Age appropriate counseling done Ordered STD work up Advised patient to take OTC calcium and vitamin D Safe sex counseling done. Counseled about Kegel exercises. PAP done today 05/03/2024 Encounter for screening for infections with a predominantly sexual mode of transmission (ICD-10 - Z11.3) 05/03/2024 Encounter for screening for malignant neoplasm of cervix (ICD-10 - Z12.4) 05/03/2024 Encounter for other general counseling and advice on contraception (ICD-10 - Z30.09) Counseled patient about different forms of control methods including Condoms, OCPS, Depo Provera, Nuva ring, patch, Nexplanon, IUD, Implanon -- etc. Counseled LARC is the best option for her. Patient refused. 05/03/2024 Encounter for human immunodeficiency virus test (ICD-10 - Z11.4) Plan Of Treatment Treatment Notes Assessment Notes Encounter for gynecological examination (general) (routine) without abnormal findings WWE - Age appropriate counseling done Ordered STD work up Advised patient to take OTC calcium and vitamin D Safe sex counseling done. Counseled about Kegel exercises. PAP done today Encounter for other general counseling and advice on contraception Counseled patient about different forms of control methods including Condoms, OCPS, Depo Provera, Nuva ring, patch, Nexplanon, IUD, Implanon -- etc. Counseled LARC is the best option for her. Patient refused. Next Appt Details Follow Up: 1 Year, Reason: W WE Provider Name:Fam maya, 05/08/2025 01:30:00 PM, [address] [place], [place], [id number], Progress Notes * Thelma ROMANO LDOB: [birth year] (23 yo F)Acc No.[id number]:05/03/2024 Patient: Eliu Thelma RAYMOND Appointment Provider: CRISTIAN Bunch :2000 A ge:23 Y S ex:Female Supervising Provider:MARI PEREIRA M.D. Date:05/03/2024 Address:[address], [id number] Pcp:JUN SALEEM Check In:01:06 PM CSTCheck O ut:02:17 PM BRANCH SERVICE ASSOCIATE Subjective: * Chief Complaints: * 1 . Annual Well Women's Exam WITH PAP. * HPI: D epression Screening: PHQ-9 L ittle interest or pleasure in doing things N ot at all, F eeling down, depressed, or hopeless N ot at all, T rouble falling or staying asleep, or sleeping too much M ore than half the days, F eeling tired or having little energy M ore than half the days, P oor appetite or overeating N ot at all, F eeling bad about yourself or that you are a failure, or have let yourself or your family down N ot at all, Trouble concentrating on things, such as reading the newspaper or watching television N ot at all, M oving or speaking so slowly that other people could have noticed; or the opposite, being so fidgety or restless that you have been moving around a lot more than usual N ot at all,?Thoughts that you would be better off or of hurting yourself in some way N ot at all,?Total Score 4 , I nterpretation M inimal Depression. A nnual: Patient presents for annual exam ages 18-29. Menstrual History: L ast menstrual period: 07/01/2023,?Currently using control: N o, C urrently using hormone replacement therapy (HRT): N o. G eneral Health Maintenance: C urrent breast complaints: n o breast pain, mass, discharge, or skin changes, U rinary problems: p atient reports no urinary health problems or bowel health problems, C alcium intake: d oes not take in adequate calcium, but is encouraged to do so through diet and/or supplementation, S ignificant BUILD AND DEPLOYMENT ENGINEER problems: n o significant instrument maintenance supervisor symptoms or problems. H igh Risk Assessment (V15.89): O nset of sexual activity under age 16: N o, F lisa or more sexual partners in lifetime: N o, H istory of sexually transmitted diseases: N o, F ewer than three negative Pap smears within previous seven years: N o, N o Pap smears at all within the previous seven years: N o. F amily Planning: Contraception Method P rimary Method: n o method, R stephania: o ther reason No longer having sex. P regnancy Intention W ould you like to become in the next year? N o. * ROS: G eneral/Constitutional: Patient denies f ever, fatigue, headache, weight gain, weight loss. E ndocrine: Patient denies a cne cold intolerance, excessive thirst, hair loss, heat intolerance, hot flashes. R espiratory: Patient denies c hronic cough, shortness of breath, wheezing. B reast: Patient denies b reast lump or masses, nipple discharge, persistent breast pain. C ardiovascular: Patient denies c hest pain or angina, palpitations, swelling in hands/feet. G astrointestinal: Patient denies b lood in stool, chronic constipation, frequent diarrhea, nausea, vomiting. H ematology: Patient denies a nemia, bleed easily, easy bruising. ? W omen Only: Patient denies v aginal bleeding between periods, painful menses, periods lasting more than 7 days, interval between periods is more than 35 days. ? G enitourinary: Patient denies b lood in the urine, painful urination, frequent urination, loss of urine with cough or laughter. M usculoskeletal: Patient denies p ainful joints, weakness. S kin: Patient denies h air changes, rash, skin lesion(s). ? P sychiatric: Patient denies f eelings of anxiety, feelings of depression, suicidal thoughts. * Medical History: N o Reported Medical History. * Adult School Counselor History: D ate of Last Period 07/01/2023. S exual activity n ot currently sexually active.? control N one. * OB History: T otal pregnancies 0 . * Surgical History: r ight thumb fx w/ pins 05/2012. * Hospitalization/Major Diagno stic Procedure: D enies Past Hospitalization. * Family History: M other: alive. F ather: alive. S iblings: alive. 2 brother(s) . . Maternal grandmother and great aunt had breast cancer. * Social History: T obacco Use: T obacco use other than smoking A re you an other tobacco user? N o. T obacco Control (Standard) T obacco use: F ormer smoker, A dditional Findings: Tobacco user e -cigarette. D rugs/Alcohol: D rugs H ave you used drugs other than those for medical reasons in the past 12 months??No. D o you smoke marijuana?: Denies. Do you drink alcohol?: occasionally. * Medications: T aking Pamprin Max Pain Formula 500-25-15 MG Tablet as directed Orally , Medication List reviewed and reconciled with the patient * Allergies: N .K.D.A. Objective: * Vitals: W t:202lbs, Ht: 65 in, BMI:33.61Index, BP:122/67mm Hg, Temp:98.4F, Oxygen sat %:98%, HR:61/min, RR:18/min, Pain scale:01-10, Wt-k.63 kg. Pt presents to clinic today for wwe. Currently on menses 05/01/2024. No c/o pain. Received Rapid HIV POC. Ary Ribeiro RN. * Examination: G eneral Exam: CONSTITUTIONAL: G eneral Appearance: a lert, in no acute distress, normal, well nourished. NECK/THYROID: I nspection/Palpation: n ormalThyroid: n ormal size and shape. RESPIRATORY: A uscultation: c lear to auscultation bilaterallyRespiratory Effort: n ormal. CARDIOVASCULAR: A uscultation: r egular rate and rhythm. BREAST, Right: I nspection/Palpation: n o discharge, no masses present, no nipple retraction, no skin changes, no skin dimpling, no tenderness, no lymphadenopathy, no axillary mass, no axillary tenderness. BREAST, Left: I nspection/Palpation: n o discharge, no masses present, no nipple retraction, no skin changes, no skin dimpling, no tenderness, no lymphadenopathy, no axillary mass, no axillary tenderness. GASTROINTESTINAL: A bdomen: n o masses, nontender, nondistendedLiver and Spleen: n ormalHernias: n o hernias present, no inguinal adenopathy. MUSCULOSKELETAL: I nspection/Palpation: n o clubbing, cyanosis, or edema. SKIN: S kin: n ormal. NEURO/PSYCH: O rientation: t phill , place, personMood/Affect: n ormal. G enitourinary: EXTERNAL GENITALIA: E xternal Genitalia: n ormal, no lesions. VAGINA: V agina: n ormal appearance, no abnormal discharge, no lesions. BLADDER: B ladder: n o mass, nontender. URETHRA: U rethra: n o erythema or lesions present. CERVIX: C ervix: n o lesions, non-tender, Pap done. UTERUS: U terus: n on-tender. ADNEXA: A dnexa: n o masses, no tenderness. ANUS AND PERINEUM: A nus/Perineum: v isually normal. Assessment: * Assessment: 1. E ncounter for gynecological examination (general) (routine) without abnormal findings - Z01.419 (Primary) 2 . E ncounter for test, result unknown - Z32.00 & #160; 3 . E ncounter for screening for infections with a predominantly sexual mode of transmission - Z11.3 4 . E ncounter for screening for malignant neoplasm of cervix - Z12.4 5 . E ncounter for other general counseling and advice on contraception - Z30.09 6 . E ncounter for human immunodeficiency virus test - Z11.4 ? Plan: * Treatment: 2. E ncounter for test, result unknown L AB: Urine Human Chronic Gonadotropin (Collection Date & Time - 05/03/2024 01:34 PM) Value Reference Range U rine Human Chronic Gonadotropin Negative Negative - * I nternal QC performed Pass Pass - 3.?Encounter for screening for infections with a predominantly sexual mode of transmission?LAB: HEPATITIS BS ANTIGEN 498 (Collection Date & Time - 05/03/2024 01:27 PM) ?LAB: RPR (DX) W/REFL TITER,& CONFIRM TESTING (Collection Date & Time - 05/03/2024 01:27 PM)4.?Encounter for screening for malignant neoplasm of cervix?LAB: IGP,CtNgTv,rfx Apt HPV all (Collection Date & Time - 05/03/2024 01:27 PM) ?LAB: HEPATITIS C ANTIBODY (Collection Date & Time - 05/03/2024 02:40 PM) 5.?Encounter for other general counseling and advice on contraception? Notes: Counseled patient about different forms of control methods including Condoms, OCPS, Depo Provera, Nuva ring, patch, Nexplanon, IUD, Implanon -- etc. Counseled LARC is the best option forher. Patient refused.?? 6.?Encounter for human immunodeficiency virus test?LAB: POC HIV - ChemBio (Collection Date & Time - 05/03/2024)?Negative* Quintin Brucebernarda Peña 05/03/2024 02:2 7:25 PM > Pt notified of result. Ary Ribeiro RN * Procedure Codes: 3 078F DIAST BP < 80 MM HG, 3074F SYST BP LT 130 MM HG, G0444 ANNUAL DEPRESSION SCREENING 15 MIN, G0442 ANNUAL ALCOHOL MISUSE SCREEN 15 MIN, 1000F TOBACCO USE, SMOKING, ASSESS, 1126F AMNT PAIN NOTED NONE PRSNT, G8427 DOC MEDS VERIFIED W/PT OR RE * Preventive Medicine: Preventative Wellness Plan Women: B VA, Height, and Weight: T he Recommended Frequency is: A nnually, M y BMI, height, and weight were taken on: 07/03/2023. B lood Pressure: T he Recommended Frequency is: A nnually, if BP >120-139/80-89 mm Hg, M y blood pressure was last taken on: 07/03/2023. B reast Cancer Screening (Mammogram): T he Recommended Frequency is: Y early mammogram from age 40. C ervical Cancer Screening (Pap Smear): T he Recommended Frequency is: E very five years, ages 30-65 with HPV testing, M y last Pap smear was done on: 07/03/2023. O steoporosis Screening (Bone Density Measurement): T he Recommended Frequency is: R outinely, for women ages 65+, Routinely, for women ages 60-64 with risk factors. C holesterol Testing: T he Recommended Frequency is: R egularly beginning at age 20 with risk factors. D iabetes Screening: T he Recommended Frequency is:?With a sustained BP >/= 135/80 mm Hg. S exually Transmitted Diseases (STDs): T he Recommended Frequency is: A s necessary for those with risk factors, L ast completed: 07/03/2023. D epression Screening: T he Recommended Frequency is: A s necessary for those with risk factors, S creening for depression was last done on: 07/03/2023. A lcohol Misuse Screening: T he Recommended Frequency is: A s necessary for those with risk factors, Screening for alcohol misuse was last done on: 07/03/2023. I nfluenza (Flu) Vaccine: T he Recommended Frequency is: A nnually. R ecommendations For Improvement T he recommendations are: D iet, Exercise, Tobacco cessation, Weight management. Counseling: A LCOHOL USE/ABUSE SCREENING: . A nnual pap smear: . B reast awareness . B reast self exam after periods: . C alcium supplementation:?. D iet/Vitamins discussed including high doses of Vitamins A, C, E and Zinc: . D omestic violence: . D rugs . E xercise: . H azardous materials exposure:?. I njury prevention: . S afety: . S eatbelts: . S exual practices: . S MOKING: . S ocial: . S unscreen: . * Follow Up: 1 Year (Reason: WWE) * Billing Information: * Visit Code: 34045 Preventive Care New Pt. Age 18-39. * Procedure Codes: 3078F DIAST BP < 80 MM HG. 3074F SYST BP LT 130 MM HG. G0444 ANNUAL DEPRESSION SCREENING 15 MIN. G0442 ANNUAL ALCOHOL MISUSE SCREEN 15 MIN. 1000F TOBACCO USE, SMOKING, ASSESS. 1126F AMNT PAIN NOTED NONE PRSNT. G8427 DOC MEDS VERIFIED W/PT OR RE. Review Notes: MARI PEREIRA 2024-05-07 08:27:34* CH SERVICE ASSOCIATE Electronically co-signed by MARI PEREIRA MD on 05/07/2024 at 08:27 AM BRANCH SERVICE ASSOCIATE Sign off status: Completed true * Appointment Provider: CRISTIAN Bunch Date: 07/03/2023 Generated for Jie rich/Robel/eTransmitting on: 0 09/03/2024 06:28 PM CDT History and Physical Notes * HPI (History of Present Illness) Category Sub-Category Detail Notes Category Not es Family Planning Contraception Method Primary Method:: no m ethod Reason:: other reason No longer having sex Intention Would you like to become pre gnant in the next year?: No Depression Screening PHQ-9 Little inte rest or pleasure in doing things: Not at all Feeling down, depressed, or hopeless: No t at all Trouble falling or staying a sleep, or sleeping too much: More than half the days Feeling tired or having little energy: M ore than half the days Poor appetite or overeating: Not at all Feeling bad about yourself o r that you are a failure, or have let yourself or your family down: Not at all Trouble concentrating on thi ngs, such as reading the newspaper or watching television: Not at all Moving or speaking so slowly that other people could have noticed; or the opposite, being so fidgety or restless that you have been moving around a lot more than usual: Not at all Thoughts that you would be b joe off or of hurting yourself in some way: Not at all Total Score: 4 Interpretation: Minimal Depression Annual Menstrual History: Last menstrual period:: 11/2023 Currently using control:: No Currently using hormone replacement ther apy (HRT):: No General Health Maintenance: Current bryant st complaints:: no breast pain, mass, discharge, or skin changes Urinary problems:: patient r eports no urinary health problems or bowel health problems Calcium intake:: does not ta ke in adequate calcium, but is encouraged to do so through diet and/or supplementation Significant BUILD AND DEPLOYMENT ENGINEER problems:: n o significant instrument maintenance supervisor symptoms or problems High Risk Assessment (V15.89): Onset of sexual a ctivity under age 16:: No Five or more sexual partners in lifetime :: No History of sexually transmitted diseases :: No Fewer than three negative Pap smears wit hin previous seven years:: No No Pap smears at all within the previous seven years:: No Examination Category Sub-Category Detail Notes Category Not es General Exam CONSTITUTIONAL: General Appearan ce:: alert, in no acute distress, normal, well nourished NECK/THYROID: Thyroid:: normal size and shape Inspection/Palpation:: normal RESPIRATORY: Respiratory Effort:: normal Auscultation:: clear to auscultation dolores aterally CARDIOVASCULAR: Auscultation:: regular rate and rhythm GASTROINTESTINAL: Abdomen:: no masses, nontender , nondistended Liver and Spleen:: normal Hernias:: no hernias present, no inguina l adenopathy MUSCULOSKELETAL: Inspection/Palpation:: no clubb ing, cyanosis, or edema SKIN: Skin:: normal NEURO/PSYCH: Mood/Affect:: normal Orientation:: time , place, person BREAST, Right: Inspection/Palpation :: no discharge, no masses present, no nipple retraction, no skin changes, no skin dimpling, no tenderness, no lymphadenopathy, no axillary mass, no axillary tenderness BREAST, Left: Inspection/Palpation :: no discharge, no masses present, no nipple retraction, no skin changes, no skin dimpling, no tenderness, no lymphadenopathy, no axillary mass, no axillary tenderness Genitourinary EXTERNAL GENITALIA: External Genitalia:: nor mal, no lesions VAGINA: Vagina:: normal appearance, no a bnormal discharge, no lesions BLADDER: Bladder:: no mass, nontender URETHRA: Urethra:: no erythema or lesions present CERVIX: Cervix:: no lesions, non-tender, Pap done UTERUS: Uterus:: non-tender ADNEXA: Adnexa:: no masses, no tendernes s ANUS AND PERINEUM: Anus/Perineum:: visually norm al
--- OUTSIDE RECORDS SUMMARY | 2024-09-03 18:28 | XMS_ITS | Patient Health Summary ---
Author Organization [facility] Address [address] [place] [address] Care Team Providers Care Electronics Technician Name Role Phone Bridget Cornelius MD Primary Care Provider [phone] Note from [facility],non-owned Affiliates and Associated Physician Practices is amultiple site organization consisting of ambulatory clinics and hospital sitesin [place], [place], [place] and [place]. This disclosure is being madepursuant to the Care Everywhere program and may not contain all information available regarding this patient. Last updated 18.[facility] Allergies No known active allergies Medications * Be aware that medications may not be up to date on this document. Alwaysverify current medications with the patient. * topiramate (TOPAMAX) 50 MG tablet(Started 06/25/2018) Take 1 tablet by mouth at bedtime Reasons: Neuralgia 3 refills remaining Active Problems No known active problems Social [...] Comments Blood Pressure 127/80 06/25/2018 7:52 AM CLINICAL TRIALS DATA COORDINATOR Pulse 74 06/25/2018 7:52 AM CLINICAL TRIALS DATA COORDINATOR Temperature - - Respiratory Rate - - Oxygen Saturation - - Inhaled Oxygen Concentration - - Weight 98.9 kg (218 lb) 06/25/2018 7:52 AM CLINICAL TRIALS DATA COORDINATOR Height 165.1 cm (5' 5 ) 06/25/2018 7:52 AM CLINICAL TRIALS DATA COORDINATOR Body Mass Index 36.28 06/25/2018 7:52 AM CLINICAL TRIALS DATA COORDINATOR Care Teams Electronics Technician Relationship Specialty Start Date End Date Bridget Cornelius MD PCP - General 06/12/18
--- OUTSIDE RECORDS SUMMARY | 2024-09-03 18:28 | XMS_ITS | Patient Health Record ---
Author Organization [facility] Address [address] [place], [place] [address] Care Team Providers Care Nuclear Medicine Technician Name Role Phone JUN SALEEM Primary Care Provider [phone] Fam Calderon Unavailable [phone] Allergies No Known Allergies Results Component Value Reference Range Notes IGP,CtNgTv,rfx Apt HPV all Reviewed date:05/15/2024 08:12:31 AM Interpretation: Performing Lab:[place], [address] [facility] [address], [place], [place] [id number], Phone - [phone] Notes/Report: TESTING PERFORMED AT: [] [address], [address], PHONE: [phone], WOMENS VOLLEYBALL COACH: DOMENICO MARTELL MD NO. OF CONTAINERS..01 THINPREP VIAL This order was split into 3 orders: [id number] (Urine Human Chronic Gonadotropin), [id number] (IGP,CtNgTv,rfx Apt HPV all ), [id number] (HEPATITIS C ANTIBODY,RPR (DX) W/REFL TITER,\T\ CONFIRM TESTING,HEPATITIS BS ANTIGEN 498) DIAGNOSIS: COMMENT UNSATISFACTORY FOR EVALUATION. RECOMMENDATION: COMMENT SUGGEST FOLL OW UP CLINICALLY APPROPRIATE. SPECIMEN ADEQUACY: COMMENT SPECIMEN PROCESSED AND EXAMINED BUT UNSATISFACTORY FOR EVALUATION OF EPITHELIAL ABNORMALITY BECAUSE OF INSUFFICIENT CELLULARITY. CLINICIAN PROVIDED ICD10: COMMENT Z12.4 PERFORMED BY: SEJLA SPEAR, NURSING PROGRAM DIRECTOR (ASCP) QC REVIEWED BY: COMMENT STEVEN WATERS, SUPERVISORY NURSING PROGRAM DIRECTOR (ASCP) . . NOTE: COMMENT THE PAP [...] NEGATIVE TRICH VAG BY ELIJAH NEGATIVE NEGATIVE RPR (DX) W/REFL TITER,& CONF IRM TESTING Reviewed date:05/07/2024 11:15:56 AM Interpretation: Performing Lab:, [facility], [address] [place] [id number], Phone - [phone] Notes/Report: TESTING PERFORMED AT: [CB] [facility], [address] [place] [address], [address], PHONE: [phone], WOMENS VOLLEYBALL COACH: CRUZ WAY, PHD Items were attached to this order: HEPATITIS C ANTIBODY 8472 This order was split into 3 orders: [id number] (Urine Human Chronic Gonadotropin), [id number] (IGP,CtNgTv,rfx Apt HPV all ), [id number] (HEPATITIS C ANTIBODY,RPR (DX) W/REFL TITER,\T\ CONFIRM TESTING,HEPATITIS BS ANTIGEN 498) RPR NON REACTIVE NON REACTIVE POC HIV - [employer] Reviewed date:05/03/2024 02:38:26 PM Interpretation:Negative Performing Lab: Notes/Report: Negative HEPATITIS BS ANTIGEN 498 Reviewed date:05/07/2024 11:16:05 AM Interpretation: Performing Lab:, [place], [address] [facility] [address], [place], [place] [id number], Phone - [phone] Notes/Report: TESTING PERFORMED AT: [] [facility], [address] [place] [address], [address], PHONE: [phone], WOMENS VOLLEYBALL COACH: CRUZ WAY, PHD Items were attached to this order: HEPATITIS C ANTIBODY 8472 This order was split into 3 orders: [id number] (Urine Human Chronic Gonadotropin), 7794028 (IGP,CtNgTv,rfx Apt HPV all ), [id number] (HEPATITIS C ANTIBODY,RPR (DX) W/REFL TITER,\T\ CONFIRM TESTING,HEPATITIS BS ANTIGEN 498) HBSAG SCREEN NEGATIVE NEGATIVE Urine Human Chronic Gonadotr opin () Reviewed date:05/03/2024 02:38:26 PM Interpretation: Performing Lab:[facility]), [address] [place], [place] [id number] Notes/Report: Test Performed at [facility], [address] [place] [phone]. [phone]. Boot Turner: Yolanda Hu MD. CLIA# [id number]. This order was split into 3 orders: [id number] (Urine Human Chronic Gonadotropin), 8725635 (IGP,CtNgTv,rfx Apt HPV all ), [id number] (RPR (DX) W/REFL TITER,\T\ CONFIRM TESTING,HEPATITIS BS ANTIGEN 498) Urine Human Chronic Gonadotropin Negative Negative Internal QC performed [place] [facility] Kit Lot [id number] Performing Location WF HEPATITIS C ANTIBODY Reviewed date:05/07/2024 11:15:49 AM Interpretation: Performing Lab: [facility], [address] [place], [place] [id number], Phone - [phone] Notes/Report: TESTING PERFORMED AT: [] [facility], [address] [place] [address], [address], PHONE: [phone], WOMENS VOLLEYBALL COACH: CRUZ WAY, PHD Items were attached to this order: HEPATITIS C ANTIBODY 8472 This order was split into 3 orders: [id number] (Urine Human Chronic Gonadotropin), 3276915 (IGP,CtNgTv,rfx Apt HPV all ), 5315070 (HEPATITIS C ANTIBODY,RPR (DX) W/REFL TITER,\T\ CONFIRM TESTING,HEPATITIS BS ANTIGEN 498) HEP C VIRUS AB NON REACTIVE NON REACTIVE HCV ANTIBODY ALONE DOES NOT DIFFERENTIATE BETWEEN PREVIOUSLY RESOLVED INFECTION AND ACTIVE INFECTION. EQUIVOCAL AND REACTIVE HCV ANTIBODY RESULTS SHOULD BE FOLLOWED UP WITH AN HCV RNA TEST TO SUPPORT THE DIAGNOSIS OF ACTIVE HCV INFECTION. Reason For Referral No Information Medications Medication SIG (Take, Route, Frequency, Duration) [...] Status Risk Notes Problem Gynecological examination normal ([id number]) Encounter for gynecological examination (general) (routine) without abnormal findings (Z01.419) Active confirmed Vital Signs Heart Rate 61 /min 05/03/2024 Pt presents to clinic today for wwe. Currently on menses 05/01/2024. No c/o pain. Received Rapid HIV POC. Ary Ribeiro RN Temperature 98.4 degrees Fahrenheit 05/03/2024 Pt p resents to clinic today for wwe. Currently on menses 05/01/2024. No c/o pain. Received Rapid HIV POC. Ary Ribeiro RN Respiratory Rate 18 /min 05/03/2024 Pt presents to clinic today for wwe. Currently on menses 05/01/2024. No c/o pain. Received Rapid HIV POC. Ary Ribeiro RN Oximetry 98 % 05/03/2024 Pt presents to clinic today for wwe. Currently on menses 05/01/2024. No c/o pain. Received Rapid HIV POC. Ary Ribeiro RN Blood pressure diastolic 67 mm Hg 05/03/2024 Pt presents to clinic today for wwe. Currently on menses 05/01/2024. No c/o pain. Received Rapid HIV POC. Ary Ribeiro RN Weight-kg 91.63 kg 05/03/2024 Pt presents to clinic today for wwe. Currently on menses 05/01/2024. No c/o pain. Received Rapid HIV POC. Ary Ribeiro RN Height 65 in 05/03/2024 Pt presents to clinic today for wwe. Currently on menses 05/01/2024. No c/o pain. Received Rapid HIV POC. Ary Ribeiro RN Blood pressure systolic 122 mm Hg 05/03/2024 Pt p resents to clinic today for wwe. Currently on menses 05/01/2024. No c/o pain. Received Rapid HIV POC. Ary Ribeiro RN Weight 202 lbs 05/03/2024 Pt presents to clinic today for wwe. Currently on menses 05/01/2024. No c/o pain. Received Rapid HIV POC. Ary Ribeiro RN BMI 33.61 kg/m2 05/03/2024 Pt presents to clinic today for wwe. Currently on menses 05/01/2024. No c/o pain. Received Rapid HIV POC. Ary Ribeiro RN Encounters Encounter Location Date Provider Diagnosis [address] [address] 05/03/2024 [facility] Encounter for pregna ncy test, result [...] Clinical Notes Section Notes 05/03/2024 Encounter for gynecological examination (general) (routine) without abnormal findings (ICD-10 - Z01.419) WWE - Age appropriate counseling done Ordered STD work up Advised patient to take OTC calcium and vitamin D Safe sex counseling done. Counseled about Kegel exercises. PAP done today 05/03/2024 Encounter for test, result unknown (ICD-10 - Z32.00) 05/03/2024 Encounter for screening for infections with [...] test (ICD-10 - Z11.4) Plan Of Treatment Next Appt Details Provider Name:Fam Amie maya, 05/08/2025 01:30:00 PM, [address], [place], [id number], Insurance Providers Payer Name Payer Address Payer Phone Subscriber Number Group Number Insured Name Patient Relationship to Insured Coverage Start Date Coverage End Date [facility] [address] [address] [place] [address] [id number] Thelma Lei Self - patient is the insured Medical (General) History Surgical History Surgery Date(Month/Year) right thumb fx w/ pins 05/2012
--- OUTSIDE RECORDS SUMMARY | 2024-09-03 18:28 | XMS_ITS | Encounter Summary ---
Author Organization [facility] Address [address] [place] [address] Phone Care Team Providers Care Gravel Inspector Name Role Phone Jonathan Kumar Primary Care Provider [phone] Reason for Visit * Reason Onset Date Comments Results 07/01/2023 Encounter Details Date Type Department Care Team ([facility] st Contact Info) Description 07/01/2023 Telephone [facility] Call Center [address] [place] [address] Jonathan Kumar PAC [address] [place] [address] Results Social History Tobacco Use Types Packs/Day Years [...] on file Sexual Orientation Not on file documented as of this encounter Miscellaneous Notes * Telephone Encounter - Jonathan Kumar PAC - 07/02/2023 10:02 PM UPHOLSTERY AUTO TRIMMER See result note regarding further recommendations. LSTERY AUTO TRIMMER * Telephone Encounter - Radha Gonzalez RN - 07/01/2023 10:29 AM UPHOLSTERY AUTO TRIMMER SITUATION: Results BACKGROUND: Patient calling stating she saw her results in MyChart for her chest xray. Patient calling to see what the plan of care is now. Please advise. Patient would like a [email or web address] message regarding this. LSTERY AUTO TRIMMER documented in this encounter Plan of Treatment Not on file documented as of this encounter Goals Goal Patient Goal Type Associated Problems Recent Progress Patient-Stated? Author Emotional Distress Behavioral Health On track( 11:31 AM CDT) No Malaika Sauceda LCSW Note: Thelma will report decreased emotional distress Goal Reviewed with: patient today Readiness to change: Ready to change Department associated with goal: [facility] Steps to achieve goal: [...] with what happened. Behavioral Health On track( 11:31 AM CDT) Yes Malaika Sauceda LCSW Note: will gain insight regarding impact of trauma and gain relief from traumatic stress. Goal Reviewed with: patient today Readiness to change: Ready to change Department associated with goal: [facility] Steps to achieve goal: will share personal trauma story in counseling/psychotherapy sessions. will learn/identify how trauma has impacted personal life, physical health and behavioral health. will identify and practice, at least two, skills/activities/routines, to gain relief from the impact of trauma. Will attend individual or group therapy at least once a month for 8-10 sessions. documented as of this encounter Visit Diagnoses Not on filedocumented in this encounter Additional Health Concerns Assessment Noted Time PHQ-9 Depression Total Score: 19 03/07/ 022 1:00 PM UPHOLSTERY AUTO TRIMMER documented as of this encounter Care Teams Gravel Inspector Relationship Specialty Start Date End Date Jonathan Kumar, PAC [address] [place] [place] [address] PCP - General Physician Criminal Judge 06/15/23 documented as of this encounter
--- OUTSIDE RECORDS SUMMARY | 2024-09-03 18:28 | XMS_ITS | Clinical Summary ---
Author Organization [facility] [address] Address [address] [place] [address] Care Team Providers Care Food Vendor Name Role Phone Kobi Nyla Shoaib ELIJAH Primary Care Provider [phone] Allergies No known active allergies Medications topiramate [...] up to 20 doses 40 tablet 08/23/19 23 Active ibuprofen (ADVIL,MOTRIN) 600 mg tablet Take 1 tablet (600 mg total) by mouth every 6 (six) hours as needed for pain for up to 30 doses 30 tablet 08/23/19 23 Active ondansetron ODT (ZOFRAN-ODT) 4 mg disintegrating tablet Take 1 tablet (4 mg total) by mouth every 8 (eight) hours as needed for nausea or vomiting 20 tablet 08/23/19 23 Active tamsulosin (FLOMAX) 0.4 mg extended release capsule Take 1 capsule (0.4 mg total) by mouth daily for 7 days 7 capsule 08/23/19 23 Active oxyCODONE (ROXICODONE) 5 mg immediate release [...] A, Pediatric 12/02/2013 Meningococcal MCV4P (Menactra) 09/15/2016 Surgical History Surgery Date Site/Laterality Comments NO PAST SURGERIES Medical History Medical History Date Comments Anxiety Obesity PTSD (post-traumatic stress disorder) MDD (major depressive disorder) GERD (gastroesophageal reflux disease) Social History Tobacco Use Types Packs/Day Years Used Date Smoking Tobacco: Never Personal Safety Answer Date Recorded Getting School Help Needed Not on file 06/16 Comments No Sex and Gender Information Value Date Recorded Sex Assigned at Not on file Legal Sex Female 12:45 AM CARDIAC REHAB NURSE Gender Identity Not on file Sexual Orientation Not on file Obstetrics History Last Filed Vital Signs Vital Sign Reading Time Taken Comments Blood Pressure 119/66 08/23/2022 1:00 AM CARDIAC REHAB NURSE Pulse 76 08/23/2022 1:00 AM CARDIAC REHAB NURSE Temperature 37.8 C (100 F) 08/22/2022 6:54 PM CARDIAC REHAB NURSE Respiratory Rate 18 08/23/2022 1:00 AM CARDIAC REHAB NURSE Oxygen Saturation 96% 08/23/2022 1:00 AM CARDIAC REHAB NURSE Inhaled Oxygen Concentration - - Weight 90.7 kg (200 lb) 08/22/2022 6:54 PM CARDIAC REHAB NURSE Height 162.6 cm (5' 4 ) 08/22/2022 6:54 PM CARDIAC REHAB NURSE Body Mass Index 34.33 08/22/2022 6:54 PM CARDIAC REHAB NURSE Plan of Treatment Health Maintenance Due Date Last Done Comments Cervical Cancer Screening 1999 Depression Screening 1999 Hepatitis C Screening 1999 DTaP/Tdap/Td Vaccine (1 - Tdap) 2010 Varicella Vaccines (1 of 2 - 13+ 2-dose series) 2012 Hepatitis B Screening 2017 Regular Well Visit/Exam 18-64 2017 Influenza Vaccine (#1) 2024 HPV Vaccines Completed 09/15/2016, 02/03/2014, 12/02/2013 Pneumococcal vaccine <65 Aged Out No longer eligible based on patient's age to complete this topic Insurance [facility]PPO Address: [facility] [address] [place] [address] [facility] H[facility]/PPO [place]: [place] [address] [facility] H[facility]/PPO Address: [place] [address] Care Teams Food Vendor Relationship Specialty Start Date End Date Nyla Peace NP [address] [place] [address] PCP - General 08/12/21
--- OUTSIDE RECORDS SUMMARY | 2024-09-03 18:28 | XMS_ITS | Referral Summary ---
Author Organization [facility] Address [address] [place] [address] Care Team Providers Care Location Analyst Name Role Phone Bridget Cornelius MD Primary Care Provider [phone] Source Comments [facility],non-owned Affiliates and Associated Physician Practices is amultiple site organization consisting of ambulatory clinics and hospital sitesin [place], [place], [place] and [place]. This disclosure is being madepursuant to the Care Everywhere program and may not contain all information available regarding this patient. Last updated 18.[facility] Allergies No known active allergies Medications * [...] Comments Blood Pressure 127/80 06/25/2018 7:52 AM ORDER BUILDER Pulse 74 06/25/2018 7:52 AM ORDER BUILDER Temperature - - Respiratory Rate - - Oxygen Saturation - - Inhaled Oxygen Concentration - - Weight 98.9 kg (218 lb) 06/25/2018 7:52 AM ORDER BUILDER Height 165.1 cm (5' 5 ) 06/25/2018 7:52 AM ORDER BUILDER Body Mass Index 36.28 06/25/2018 7:52 AM ORDER BUILDER Plan of Treatment Not on file Care Teams Location Analyst Relationship Specialty Start Date End Date Bridget Cornelius MD PCP - General 06/12/18
--- NOTE | 2024-09-03 18:43 | ED.GENADULT ---
HPI - General Adult General Chief complaint: Extremity Problem,Nontraumatic Stated complaint: Finger Numbness Source: patient, RN notes reviewed and old records reviewed Mode of arrival: ambulatory Limitations: no limitations History of Present Illness HPI narrative: 24 year old female who presents to [facility] with complaints of some right distal middle finger numbness and tingling since pulling on after MD complaint: middle finger Treatments prior to arrival: none Related Data Allergies Allergy/AdvReac Type Severity Reaction Status Date / Time No Known Allergies Allergy Verified 05/07/24 09:30 Review of Systems Review of Systems: CONSTITUTIONAL: Denies malaise, chills, sweats, or fever. EYES: Denies visual changes, redness, or discharge. ENT: Reports rhinorrhea, congestion, sinus pain, otalgia and sore throat. CARDIOVASCULAR: Denies chest pain, palpitations, or edema. RESPIRATORY: Reports cough.? Denies dyspnea. GASTROINTESTINAL: Denies abdominal pain, nausea, vomiting, diarrhea SKIN: Denies rash or itching. MUSCULOSKELETAL: Denies myalgia. NEUROLOGIC: Denies headache. All systems reviewed & are unremarkable except as noted in HPI and below PMFSH Past Medical History Medical History Anxiety and depression Surgical History Surgical History History of thumb surgery right related to fracture Social History Social History Tobacco type: e-cigarettes/vaping Alcohol intake: current Alcohol use details: rare social Substance use type: does not use Living arrangements: with family Gender identity (if verbalized by the patient): Female Comments At time of signature, agree with nursing past medical, surgical, social and family history. There is no relevant family history pertinent to the presenting complaint Exam Narrative: GENERAL: Well-appearing, well-nourished, and in no acute distress. HEAD: Normocephalic EYES: PERRLA, conjunctivae clear ENT: Nares clear, turbinates edematous and erythematous, clear discharge. Mucous membranes moist. TM pearly hernandez with dull light reflex bilaterally; no tragal tenderness. Oropharynx erythematous without lesions. Tonsils not enlarged and without exudate, no drooling, no hoarseness, no trismus, uvula midline. NECK: Supple. No lymphadenopathy CHEST: Clear to auscultation, breath sounds equal. No wheezing, rhonchi, rales, or stridor. No respiratory distress, speaks in full sentences. HEART: Regular rate and rhythm. No murmur heard. SKIN: Warm, dry, no rash. NEURO: Alert and oriented x3. PSYCH: Normal mood and affect Course Course Emergency Course: Patient is aware of diagnosis, understands and agrees to treatment plan.? Anticipatory guidance given.? Patient agrees to follow-up as directed and is aware of reasons to seek care at the emergency department. Portions of this record may have been created with voice recognition software Level of Care: Express Care Visit Vital Signs Vital signs: Vital Signs Temperature 36.7 C 09/03/24 18:00 Pulse Rate 71 09/03/24 18:00 Respiratory Rate 16 09/03/24 18:00 Blood Pressure 124/62 09/03/24 18:00 Pulse Oximetry 100 09/03/24 18:00 Oxygen Delivery Room Air 09/03/24 18:00 Temperature 36.7 C 09/03/24 18:00 Pulse Rate 71 09/03/24 18:00 Respiratory Rate 16 09/03/24 18:00 Blood Pressure 124/62 09/03/24 18:00 Pulse Oximetry 100 09/03/24 18:00 Oxygen Delivery Room Air 09/03/24 18:00 Reviewed Medical Decision Making Medical Records Medical records reviewed: Yes I reviewed the external patient's medical records. Vital Signs Vital Signs: Vital Signs Temperature 36.7 C 09/03/24 18:00 Pulse Rate 71 09/03/24 18:00 Respiratory Rate 16 09/03/24 18:00 Blood Pressure 124/62 09/03/24 18:00 Pulse Oximetry 100 09/03/24 18:00 Oxygen Delivery Room Air 09/03/24 18:00 Temperature 36.7 C 09/03/24 18:00 Pulse Rate 71 09/03/24 18:00 Respiratory Rate 16 09/03/24 18:00 Blood Pressure 124/62 09/03/24 18:00 Pulse Oximetry 100 09/03/24 18:00 Oxygen Delivery Room Air 09/03/24 18:00 reviewed Critical Care Time Critical Care Time Critical Care Time: No Discharge Plan Discharge Clinical Impression: Paresthesia of finger Patient Disposition: Home, Self-Care Condition: Stable Instructions: Paresthesia (ED) Additional Instructions: change your finger position frequently Tylenol or Ibuprofen for any discomfort apply heat and cold to fingers Check pulses in fingers and ruthie of nail bed Follow up with you PCP if no resolution in tingling or numbness of finger May try Vitamin B12 100mcg daily for 2 weeks If your symptoms persist, change or worsen significantly before you can contact your personal physician then please, without delay, go to the emergency department for further evaluation. Follow-up with PCP in 7-10 days or sooner if needed Avoid repetitive movement with your left hand till numbness and tingling have resolved Patient Language: Malaysian Follow-up/Referrals: UNKNOWN,DOCTOR [Primary Care Provider] - Time of Disposition: 19:09 Quality Leela Coma Scale Eyes: Open Verbal: Oriented and Alert Motor: Follows Commands Leela Coma Total Score: 15
== END 2024-09-03 19:15 | disposition home or self-care (01) ==
PROVIDERS: Emergency Provider Registered Nurse
DX: R20.2 Paresthesia of skin (principal); F17.290 Nicotine dependence, other tobacco product, uncomplicated
CPT/HCPCS: 99211; G0463